=== PATIENT | female | born 1945 | race Caucasian/White ===

== ENCOUNTER 2022-02-10 16:44 | Inpatient (IN) | payer MEDICARE, OTHER ==
[~2022-02-10] VITALS: Ht 152.4 cm; Wt 48.1 kg
--- NOTE | 2022-02-10 16:50 | NUR ---
BIB RA78 C/O ALTERED MENTAL STATUS RESPONDING TO DEEP PAINFUL STIMULI BY RAISING LEFT ARM.
--- NOTE | 2022-02-10 16:51 | NUR ---
AT BED SIDE
--- NOTE | 2022-02-10 16:51 | NUR ---
IV ESTBLISHED L AC 18G
--- NOTE | 2022-02-10 16:52 | NUR ---
CODE STROKE WAS ACTIVATED
--- NOTE | 2022-02-10 17:00 | NUR ---
PATIENT WENT FOR CT HEAD VIA [facility]
--- NOTE | 2022-02-10 17:03 | NUR ---
PATIENT BACK FROM CT
[2022-02-10] MEDS ORDERED: ATOR10TA PO (17:08)
[2022-02-10] MEDS ORDERED: MELA3TAB41 PO (17:08)
[2022-02-10] MEDS ORDERED: NA P133E RC (17:08)
[2022-02-10] MEDS ORDERED: LISI10TA29 PO (17:08)
[2022-02-10] MEDS ORDERED: DIPH25CA51 PO (17:08)
[2022-02-10] MEDS ORDERED: MAGN400O6 PO (17:08)
[2022-02-10] MEDS ORDERED: HYDR25TA4 PO (17:08)
[2022-02-10] MEDS ORDERED: GLUC1KIT IM (17:08)
[2022-02-10] MEDS ORDERED: DOCU-141 PO (17:08)
[2022-02-10] MEDS ORDERED: ENOX40DI SQ (17:08)
[2022-02-10] MEDS ORDERED: HYDR-4076 PO (17:08)
[2022-02-10] MEDS ORDERED: MULT-24 PO (17:08)
[2022-02-10] MEDS ORDERED: BISA10SU11 RC (17:08)
[2022-02-10] MEDS ORDERED: INSU100I40 SQ (17:08)
[2022-02-10] MEDS ORDERED: ASPI-1169 PO (17:08)
[2022-02-10] MEDS ORDERED: HYDR-4209 PO (17:14)
[2022-02-10] MEDS ORDERED: MEMA5TAB42 PO (17:14)
[2022-02-10] MEDS ORDERED: SENN-261 PO (17:14)
[2022-02-10] MEDS ORDERED: ACET-868 PO (17:14)
[2022-02-10] MEDS ORDERED: ACET-2605 PO (17:14)
[2022-02-10] MEDS ORDERED: ASCO-352 PO (17:14)
[2022-02-10] MEDS ORDERED: HYDR-3972 PO (17:14)
[2022-02-10] MEDS ORDERED: NYST15PO4 TP (17:14)
[2022-02-10] MEDS ORDERED: ZINC50TA65 PO (17:14)
[2022-02-10 17:29] LABS: BASOPHILS % (AUTO) 0.2 % (0.0-2.0); HEMATOCRIT 41 % (33-45); LYMPHOCYTES # (AUTO) 1.9 K/uL (0.8-4.8); LYMPHOCYTES % (AUTO) 10.4 % (20.0-44.0); MEAN CORPUSCULAR HGB CONC 32 g/dl (31.0-36.0); MEAN CORPUSCULAR VOLUME 92 fL (82-100); MONOCYTES # (AUTO) 0.9 K/uL (0.1-1.30); NEUTROPHILS # (AUTO) 15.4 K/uL (1.8-8.9); NEUTROPHILS % (AUTO) 84.4 % (43.0-81.0); PLATELET COUNT (AUTO) 258 K/uL (150-450); RED BLOOD CELL COUNT(AUTO) 4.39 MIL/uL (4.0-5.2); WHITE BLOOD COUNT (AUTO) 18.2 K/uL (4.3-11.0)
--- NOTE | 2022-02-10 17:33 | NUR ---
FAMILY CALLED AT [phone], NO ANSWER
[2022-02-10 17:39] LABS: CALCIUM, SERUM 10.4 mg/dL (8.5-10.1); CARBON DIOXIDE 20 mmol/L (21-32); CHLORIDE 117 mmol/L (98-107); CREATININE 7.3 mg/dL (0.6-1.3); GLUCOSE 171 mg/dL (74-106)
--- NOTE | 2022-02-10 17:44 | NUR ---
ADDITION IVS ESTABLIHSED R AC 18G, R FA 20G.
--- NOTE | 2022-02-10 17:50 | NUR ---
TPA NOT RECOMMENDED BY NEUROLOGIST
[2022-02-10 17:57] LABS: POTASSIUM 4.4 mmol/L (3.5-5.1)
[2022-02-10 18:03] LABS: SODIUM SERUM 160 mmol/L (136-145); UREA NITROGEN, BLOOD 181 mg/dL (7-18)
--- NOTE | 2022-02-10 18:21 | NUR ---
SWAB FOR COVID19 SENT TO LAB
[2022-02-10] MEDS ORDERED: IV NS 0.9% 1,000 ML BAG IV ONE (18:30)
[2022-02-10] MEDS ORDERED: PIPERACILLIN /TAZOBACTAM 3.375 G in IV D5W 50 ML IV ONE (18:30)
[2022-02-10] MEDS ORDERED: MAG HYDROX/AL HYDROX/SIMETH 30 ML UDC PO PRN (19:00)
[2022-02-10] MEDS ORDERED: ACETAMINOPHEN 325 MG TABLET PO PRN (19:00)
[2022-02-10] MEDS ORDERED: Z GUARD REMEDY 4 OZ OINT TP PRN (19:00)
[2022-02-10] MEDS ORDERED: MAGNESIUM HYDROXIDE 30 ML UDC PO PRN (19:00)
[2022-02-10] MEDS ORDERED: ONDANSETRON HCL/PF 4 MG/2 ML VIAL IVP PRN (19:00)
[2022-02-10] MEDS ORDERED: ZOLPIDEM TARTRATE 5 MG TABLET PO PRN (19:00)
--- NOTE | 2022-02-10 19:23 | NUR ---
Lab called regarding covid specimen. notified. I did order a covid order
[2022-02-10] MEDS ORDERED: ASPIRIN 300 MG/SUPP.RECT RC ONE ×2 (19:30→20:24)
[2022-02-10] MEDS ORDERED: JEVITY 1.2 CAL 1,000 ML BOTTLE NG PRN (19:30)
[2022-02-10] MEDS ORDERED: BISACODYL SUPP (10 MG) 10 MG/SUPP.RECT SUPP.RECT RC PRN (20:00)
[2022-02-10] MEDS ORDERED: Medication Not On Formulary EA (Melatonin 3 MG) PO PRN (20:00)
[2022-02-10] MEDS ORDERED: ACETAMINOPHEN ES 500 MG TABLET PO PRN (20:00)
[2022-02-10] MEDS ORDERED: hydrALAZINE HCL 25 MG TABLET PO PRN (20:00)
[2022-02-10] MEDS ORDERED: NA PHOS,M-B/NA PHOS,DI-BA 1 EA ENEMA RC PRN (20:00)
[2022-02-10] MEDS ORDERED: PIPERACILLIN /TAZOBACTAM 3.375 G VIAL IV ONE (20:24)
--- NOTE | 2022-02-10 20:58 | NUR ---
[facility] ON THE PHONE WITH DR. BOLIVAR FOR PEER TO PEER
[2022-02-10] MEDS ORDERED: GLUCAGON,HUMAN RECOMBINANT 1 MG/VIAL VIAL IM PRN (21:00)
[2022-02-10 21:34] LABS: BILIRUBIN,DIRECT 0.1 mg/dL (0.0-0.2); BILIRUBIN,TOTAL 0.3 mg/dL (0.2-1.0)
--- NOTE | 2022-02-10 21:42 | NUR ---
LACTIC ACID 2.7
--- NOTE | 2022-02-10 21:46 | NUR ---
[facility] SWAB COLLECTED AND SENT TO LAB. PATIENT'S BELONGINGS LIST DONE.
[2022-02-10 21:47] LABS: ABG BASE EXCESS -9.2 mmol/L; ABG PCO2 29.5 mmHg (35.0-45.0); ABG PH 7.334 (7.350-7.450); ABG PO2 149.8 mmHg (75.0-100.0); COHb 0.3 % (0.5-1.5); MetHb 0.3 % (0.0-1.5); O2Hb 97.8 % (94.0-97.0); SITE, ABG Right Radial; VENT MODE, BG NASAL CANNULA
[2022-02-10] MEDS: SENNOSIDES 8.6 MG TABLET PO SCH (22:00)
[2022-02-10] MEDS: ATORVASTATIN 10 MG TABLET PO SCH (22:00)
--- NOTE | 2022-02-10 22:55 | NUR ---
Jackeline rascon in [facility] - 02/10/22 at 2319 by JUAN ALBERTO TRANSFERRED TO THIRD FLOOR UNDER ACLS
[2022-02-10 23:00] VITALS: BP 108/49
--- NOTE | 2022-02-10 23:00 | NUR ---
PATIENT ADMITTED TO [facility]
--- NOTE | 2022-02-10 23:00 | NUR ---
RN ADMITTING NOTE PATIENT RECEIVED FROM ER FOR AMS AND UTI. PATIENT IS CURRENTLY RESPONDING AND OPENING EYES TO TOUCH AND DEEP PAIN STIMULI. PATIENT RESPONDS SOMETIMES BUT UNABLE TO COMPREHEND WHAT PATIENT IS SAYING. PATIENT ON 4LPM, TOLERATING WELL. COUGH NOTED. PATIENT ON TELE MONITOR READING SR 100 BPM WITH PAC. PATIENT CAME WITH LAWSON CATHETER ON, DRAINING YELLOW MILDLY CLOUDY URINE. PATIENT CURRENTLY NPO AT THIS TIME, UNABLE TO FOLLOW COMMANDS. PENDING SWALLOW EVAL. PATIENT HAS SEVERAL IV ACCESS. REMOVED OTHERS. PATIENT NOW ONLY HAS RAC 18 G SALINE LOCKED AND LAC 18 G. BOTH PATENT AND INTACT. SAFETY MEASURES IN PLACE: BED LOCKED AND IN LOWEST POSITION, CALL LIGHT WITHIN REACH, SIDE RAILS UP. WILL MONITOR PATIENT CLOSELY.
--- NOTE | 2022-02-10 23:11 | NUR ---
REPORT GIVEN TO NILDA MCCARTY [phone] FOR JAZZMINE
--- NOTE | 2022-02-11 | NUR ---
CALLED [facility] TO GET IMMUNIZATION RECORDS. PER SILVINO MUNGUIA, THEY DON'T HAVE ANY RECORDS OF HER IMMUNIZATION. SON CALLED ALSO NO ANSWER.
[2022-02-11] MEDS: BLOOD SUGAR DIAGNOSTIC 1 EACH STRIP IN SCH ×5 (00:14→21:30)
[2022-02-11] MEDS: IV 1/2NS 1000 ML 1,000 ML IV PRN ×2 (00:15→11:39)
[2022-02-11] MEDS: PIPERACILLIN /TAZOBACTAM 2.25 G in IV D5W 50 ML IV SCH ×3 (05:12→21:29)
[2022-02-11 06:31] LABS: HEMATOCRIT 39 % (33-45); HEMOGLOBIN 12.3 g/dL (11.5-14.8); LYMPHOCYTES # (AUTO) 0.6 K/uL (0.8-4.8); LYMPHOCYTES % (AUTO) 2.2 % (20.0-44.0); MEAN CORPUSCULAR HGB CONC 32 g/dl (31.0-36.0); MEAN CORPUSCULAR VOLUME 94 fL (82-100); MONOCYTES # (AUTO) 0.2 K/uL (0.1-1.30); MONOCYTES % (AUTO) 0.8 % (2.0-12.0); NEUTROPHILS # (AUTO) 27.2 K/uL (1.8-8.9); PLATELET COUNT (AUTO) 153 K/uL (150-450); RED BLOOD CELL COUNT(AUTO) 4.11 MIL/uL (4.0-5.2); WHITE BLOOD COUNT (AUTO) 28.1 K/uL (4.3-11.0)
[2022-02-11 06:43] LABS: CALCIUM, SERUM 9.3 mg/dL (8.5-10.1); CARBON DIOXIDE 17 mmol/L (21-32); CHLORIDE 118 mmol/L (98-107); CREATININE 7.1 mg/dL (0.6-1.3); GLUCOSE 324 mg/dL (74-106); MAGNESIUM 3.3 mg/dL (1.8-2.4); POTASSIUM 5.1 mmol/L (3.5-5.1)
--- NOTE | 2022-02-11 07:03 | NUR ---
RN CLOSING NOTE PATIENT IN BED, EYES CLOSED. PATIENT DID NOT HAVE ANY SIGNIFICANT CHANGES IN MENTAL STATUS. PATIENT STILL ON 4LPM, TOLERATING WELL AT 98% 02 SAT. PATIENT SR 87 WITH PAC AT THIS TIME. PATIENT UNABLE TO MAKE NEEDS KNOWN. LAWSON CATHETER DRAINING YELLOW CLOUDY URINE. PATIENT HAS ONGOING 1/2 NS AT 100 ML/HR. BS 241, NO SLIDING SCALE AND PATIENT NPO. SAFETY MEASURES IN PLACE: BED LOCKED AND IN LOWEST POSITION, CALL LIGHT WITHIN REACH, SIDE RAILS UP. ALL NEEDS MET AND ATTENDED. ALL ORDERS CARRIED OUT. WILL ENDORSE TO DAY SHIFT NURSE FOR JAZZMINE.
[2022-02-11 07:26] LABS: SODIUM SERUM 156 mmol/L (136-145)
[2022-02-11 07:27] LABS: UREA NITROGEN, BLOOD 175 mg/dL (7-18)
[2022-02-11] MEDS: PANTOPRAZOLE 40 MG TABLET.DR PO SCH (07:30)
[2022-02-11 08:18] VITALS: BP 107/48
[2022-02-11] MEDS: ASPIRIN 81 MG TAB.CHEW PO SCH (09:00)
[2022-02-11] MEDS: DOCUSATE SODIUM 100 MG CAPSULE PO SCH (09:00)
[2022-02-11] MEDS: MULTIVITAMINS,THERAGRAN 1 UDTAB TABLET PO SCH (09:00)
[2022-02-11] MEDS: MEMANTINE HCL 5 MG TABLET PO SCH ×2 (09:00→17:00)
[2022-02-11] MEDS: ZINC SULFATE 220 MG CAPSULE PO SCH ×2 (09:00→17:00)
[2022-02-11] MEDS: ASCORBIC ACID 500 MG TABLET PO SCH ×2 (09:00→17:00)
--- NOTE | 2022-02-11 09:33 | NUR ---
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 DR ALICEA NOTIFIED OF SURGICAL CONSULT REQUEST. RECOMMENDATIONS MADE FOR SKIN PROTECTION. DISCUSSED WITH NURSING STAFF. IN AGREEMENT WITH PLAN OF CARE. PT IS ON [facility] BED. Addendum: 02/11/22 at 0935 by IRINA GARCIA WNDNU Amended: Links added.
[2022-02-11] MEDS: NYSTATIN TOP POWDER 15 GM BOTTLE TP SCH (10:10)
--- NOTE | 2022-02-11 10:30 | NUR ---
swallow eval not done.pt. too groggy.
[2022-02-11 11:37] LABS: COLOR,URINE YELLOW (YELLOW)
[2022-02-11 11:38] LABS: BILIRUBIN,URINE NEGATIVE (NEGATIVE); LEUKOCYTE ESTERASE ,URINE LARGE (NEGATIVE); NITRITE, URINE NEGATIVE (NEGATIVE); PROTEIN,URINE 3+ mg/dl (NEGATIVE); UGLUCOSE NEGATIVE (NEGATIVE); UROBILINOGEN,URINE M EU/dL (0.2)
[2022-02-11 11:50] LABS: BACTERIA,URINE Many /HPF (None Seen); SQUAMOUS EPITHELIAL CELL,UR Moderate /HPF (None Seen); WBC,URINE 81-100 /HPF (0-3)
[2022-02-11 12:00] VITALS: BP 120/49
[2022-02-11] MEDS: INSULIN REGULAR, HUMAN 100 UNIT/ML 3 ML VIAL SQ PRN ×3 (12:31→21:31)
[2022-02-11 15:45] VITALS: BP 118/59
--- NOTE | 2022-02-11 17:00 | NUR ---
sánchez made aware of low urine output.
[2022-02-11] MEDS: DAKINS QUARTER STRENGTH (0.125%) 480 ML BOTTLE TOP SCH (17:30)
--- NOTE | 2022-02-11 18:40 | NUR ---
family member at bedside all day.several attempts to insert ng after sánchez whiting ordered,without success.will endorse to next shift.etta in and debridement of sacrum done as well as culture sent of site.urine sent for ua and culture.
[2022-02-11 20:00] VITALS: BP_SYST 109; BP_SYST 140; BP_DIAS 47; BP_DIAS 50
[2022-02-11] MEDS: ATORVASTATIN 10 MG TABLET PO SCH (22:00)
[2022-02-11] MEDS: SENNOSIDES 8.6 MG TABLET PO SCH (22:00)
[2022-02-12] VITALS: BP 140/47
[2022-02-12] MEDS: IV 1/2NS 1000 ML 1,000 ML IV PRN ×2 (00:30→13:39)
[2022-02-12] MEDS: BLOOD SUGAR DIAGNOSTIC 1 EACH STRIP IN SCH ×6 (02:13→21:39)
--- NOTE | 2022-02-12 02:18 | NUR ---
TALENT ADVISOR NOTE NG TUBE PLACED IN LEFT NARE @ 55 CM. POSITIVE PLACEMENT CONFIRMED VIA CHEST X-RAY. JEVITY 1.2 STARTED PER MD ORDERS @ 20 ML/HR. WILL CHECK RESIDUAL AND INCREASE DOSE IN 2 HOURS. GOAL IS 60 ML/HR.
[2022-02-12 04:00] VITALS: BP 130/58
--- NOTE | 2022-02-12 04:30 | NUR ---
BOAT CAPTAIN NOTE PATIENT TOLERATING NG TUBE FEEDING JEVITY 1.2 @ 20 ML/HR, NO RESIDUAL NOTED, INCREASED TO 40 ML/HR. WILL CONTINUE TO MONITOR
[2022-02-12] MEDS: PIPERACILLIN /TAZOBACTAM 2.25 G in IV D5W 50 ML IV SCH ×3 (05:25→21:00)
[2022-02-12] MEDS: INSULIN REGULAR, HUMAN 100 UNIT/ML 3 ML VIAL SQ PRN ×5 (05:41→22:19)
[2022-02-12 06:24] LABS: BASOPHILS % (AUTO) 0.1 % (0.0-2.0); HEMATOCRIT 38 % (33-45); LYMPHOCYTES # (AUTO) 0.5 K/uL (0.8-4.8); LYMPHOCYTES % (AUTO) 2.8 % (20.0-44.0); MEAN CORPUSCULAR HGB CONC 31 g/dl (31.0-36.0); MEAN CORPUSCULAR VOLUME 94 fL (82-100); MONOCYTES # (AUTO) 0.3 K/uL (0.1-1.30); MONOCYTES % (AUTO) 1.8 % (2.0-12.0); NEUTROPHILS # (AUTO) 15.3 K/uL (1.8-8.9); NEUTROPHILS % (AUTO) 95.3 % (43.0-81.0); PLATELET COUNT (AUTO) 121 K/uL (150-450); RED BLOOD CELL COUNT(AUTO) 4.04 MIL/uL (4.0-5.2); WHITE BLOOD COUNT (AUTO) 16.1 K/uL (4.3-11.0)
[2022-02-12 07:19] LABS: CALCIUM, SERUM 8.6 mg/dL (8.5-10.1); CARBON DIOXIDE 12 mmol/L (21-32); CHLORIDE 115 mmol/L (98-107); GLUCOSE 255 mg/dL (74-106); MAGNESIUM 2.9 mg/dL (1.8-2.4); POTASSIUM 3.9 mmol/L (3.5-5.1); SODIUM SERUM 152 mmol/L (136-145)
--- NOTE | 2022-02-12 07:32 | NUR ---
STRUCTURAL IRON ERECTOR NOTE PATIENT A/O X 0, ONLY MUMBLES, OPENS EYES. PATIENT STABLE ON 5 LPM OF OXYGEN VIA NASAL CANNULA, NO S/S OF DISTRESS OR SOB NOTED, BREATHING EVEN AND UNLABORED. PATIENT ON TELE MONITORING READING SINUS RHYTHM. RIGHT AC #28G IV ACCESS INTACT AND INFUSING 1/2 NS @ 85 ML/HR. NG TUBE IN LEFT NARE @ 55 CM, INFUSING JEVITY 1.2 @ 40 ML/HR, NO RESIDUAL NOTED, TOLERATING WELL. MEDICATIONS GIVEN ORDERED, PT NEEDS MET THROUGHOUT SHIFT. PATIENT TURNED AND REPOSITIONED Q2H. LAWSON CATH IN PLACE AND DRAINING CLOUDY YELLOW URINE. SAFETY MEASURES IN PLACE: CALL LIGHT WITHIN REACH, SIDE RAILS UP X 3, BED LOCKED IN LOWEST POSITION, HOB ELEVATED, BED ALARM ON. ENDORSED TO DAY SHIFT NURSE FOR CONTINUITY OF CARE
[2022-02-12 08:00] VITALS: BP 110/59
[2022-02-12 08:19] LABS: PHOSPHORUS 8.2 mg/dL (2.5-4.9); UREA NITROGEN, BLOOD 184 mg/dL (7-18)
[2022-02-12] MEDS: DOCUSATE SODIUM 100 MG CAPSULE PO SCH (08:38)
[2022-02-12] MEDS: ASCORBIC ACID 500 MG TABLET PO SCH ×2 (08:38→16:51)
[2022-02-12] MEDS: ASPIRIN 81 MG TAB.CHEW PO SCH (08:38)
[2022-02-12] MEDS: ZINC SULFATE 220 MG CAPSULE PO SCH ×2 (08:38→16:51)
[2022-02-12] MEDS: MEMANTINE HCL 5 MG TABLET PO SCH ×2 (08:38→16:51)
[2022-02-12] MEDS: MULTIVITAMINS,THERAGRAN 1 UDTAB TABLET PO SCH (08:38)
[2022-02-12] MEDS: DAKINS QUARTER STRENGTH (0.125%) 480 ML BOTTLE TOP SCH (08:40)
[2022-02-12] MEDS: NYSTATIN TOP POWDER 15 GM BOTTLE TP SCH (08:40)
[2022-02-12] MEDS: PANTOPRAZOLE 40 MG TABLET.DR PO SCH (08:43)
[2022-02-12 12:00] VITALS: BP 129/53
--- NOTE | 2022-02-12 14:30 | NUR ---
bgl check and 420,stat lab glucose ordered.call out to katya whiting and received order for 20 units reg. insulin.
[2022-02-12] MEDS ORDERED: INSULIN REGULAR, HUMAN 100 UNIT/ML 10 ML VIAL SQ ONE (15:00)
--- NOTE | 2022-02-12 15:40 | NUR ---
received call from lab,serum glucose 572.
--- NOTE | 2022-02-12 15:45 | NUR ---
recheck of glucose at this time and now 455,call out to katya whiting np,states he will input orders.aware tube feeding rate 60/hr.
[2022-02-12 16:00] VITALS: BP 119/55
[2022-02-12] MEDS ORDERED: INSULIN ASPART/LISPRO 100 UNIT/ML CARTRIDGE SQ ONE (16:30)
--- NOTE | 2022-02-12 17:39 | NUR ---
COMPANY TRUCK DRIVER LIGHT KAYLEEN. Addendum: 02/12/22 at 1740 by ERIN LANDEROS RN ABOVE CHARTING ON WRONG CHART.
--- NOTE | 2022-02-12 17:40 | NUR ---
RESP. TX HERE NOW DOING ABG,STATES HE WILL SEND TO KATHY.
[2022-02-12 17:46] LABS: ABG PH 7.348 (7.350-7.450); ABG PO2 58.3 mmHg (75.0-100.0); COHb 0.2 % (0.5-1.5); MetHb 0.2 % (0.0-1.5); O2Hb 88.6 % (94.0-97.0); SITE, ABG Right Radial; VENT MODE, BG NASAL CANNULA
--- NOTE | 2022-02-12 19:35 | NUR ---
RN NOTES RECEIVED PATIENT SLEEPING BUT AROUSABLE TO PAINFUL STIMULI, NON-VERBAL. ST ON TELE MONITOR HR-103, F/ C DRAINING CLOUDY URINE, ON NG-TUBE IN PLACE.. JEVITY 1.2RUNNING @ 60ML/HR, NOT IN DISTRESS, NO PAIN NOTED, SIDERAILSUPX2. WILL CONTINUE TO MONITOR
[2022-02-12 20:00] VITALS: BP 138/59
[2022-02-12] MEDS: SENNOSIDES 8.6 MG TABLET PO SCH (22:13)
[2022-02-12] MEDS: ATORVASTATIN 10 MG TABLET PO SCH (22:13)
[2022-02-12] MEDS: INSULIN GLARGINE, 100 UNIT/ML CARTRIDGE SQ SCH (22:16)
[2022-02-13] VITALS (47 sets, daily range): BP systolic 63–141; BP diastolic 34–61
[2022-02-13] MEDS: BLOOD SUGAR DIAGNOSTIC 1 EACH STRIP IN SCH ×6 (01:00→21:39)
[2022-02-13] MEDS: IV 1/2NS 1000 ML 1,000 ML IV PRN ×2 (01:00→15:19)
[2022-02-13] MEDS: INSULIN REGULAR, HUMAN 100 UNIT/ML 3 ML VIAL SQ PRN ×4 (01:09→21:40)
--- NOTE | 2022-02-13 04:17 | NUR ---
RN NOTES INFORMED JASPER LAU-JAYESH REGARDING PT'S BLOOD SUGAR AND PT'S IS GETTING JEVITY1.2, GOT AN ORDER TO CHANGE IT TO GLUCERNA 1.2, ORDER NOTED AND CARRIED OUT
[2022-02-13] MEDS: PIPERACILLIN /TAZOBACTAM 2.25 G in IV D5W 50 ML IV SCH (05:19)
[2022-02-13] MEDS: GLUCERNA 1.2 1,000 ML BOTTLE NG PRN (05:41)
[2022-02-13] MEDS ORDERED: DILTIAZEM HCL 50 MG IV IV ONE (06:45)
--- NOTE | 2022-02-13 06:45 | NUR ---
RN NOTES NEW IV LINE INSERTED BY THE LABOR RELATIONS WORKER MARITO, GAUGE 22 ON THE RIGHT WRIST
--- NOTE | 2022-02-13 06:50 | NUR ---
RN NOTES SPOKE TO JASPER MIMS AND INFORMED HER THAT PATIENT FROM SR WENT TO AFIB WITH RVR HR-155, CARDIZEM 10MG IV X1 ORDERED, ORDER NOTED AND CARRIED OUT
--- NOTE | 2022-02-13 06:50 | NUR ---
RN NOTES PATIENT IS TRYING PULL OUT HER IV - BILATERAL SOFT WRIST RESTRAINTS WAS ORDERED, AND MIDLINE INSERTION WELL
[2022-02-13] MEDS ORDERED: DILTIAZEM HCL 25 MG IV ONE (06:51)
--- NOTE | 2022-02-13 07:09 | NUR ---
RN NOTES PT. HERAT RATE CONVERTED TO ST -115AFTER GIVING CARDIZEM 10MG IV, MORNING CARE RENDERED, SIDERAILSUPX2, NOT IN DISTRESS, PT. NEEDS ATTENDED Addendum: 02/13/22 at 0720 by TAYLA CEE RN HEART RATE
[2022-02-13] MEDS: PANTOPRAZOLE 40 MG TABLET.DR PO SCH (07:30)
--- NOTE | 2022-02-13 07:35 | NUR ---
ms rn received patient on bed,non verbal,on o2 5 liters saturating 97%,w/ ng tube held at this time by material handler 1st shift rn,kulkarni to gravity w/ yellowish urine output,per material handler 1st shift, patient converted to afib this analyzer sales, cardizem iv 10mg given, patient converted to sinus tach, now again afib at 130's, dr. prado notified, wants to transfer pt to icu.
--- NOTE | 2022-02-13 08:20 | NUR ---
ms ishmael stat abg ordered and carried out,we got icu bed,to transfer patient soon.
[2022-02-13] MEDS ORDERED: AMIODARONE 450 MG in IV D5W 250 ML IV PRN (08:30)
[2022-02-13] MEDS ORDERED: AMIODARONE 150 MG in IV D5W 100 ML IV ONE (08:30)
--- NOTE | 2022-02-13 08:50 | NUR ---
rn patient to icu, report given to Micha quiñones.
[2022-02-13 08:57] LABS: ABG BASE EXCESS -10.7 mmol/L; ABG OXYGEN SATURATION 79.6 % (92.0-98.5); ABG PCO2 20.3 mmHg (35.0-45.0); ABG PH 7.398 (7.350-7.450); ABG PO2 46.7 mmHg (75.0-100.0); AaDO2 215.2 mmHg; COHb 0.3 % (0.5-1.5); MetHb 0.3 % (0.0-1.5); O2Hb 79.1 % (94.0-97.0); SITE, ABG Right Radial; VENT MODE, BG 6L NC
[2022-02-13] MEDS: DAKINS QUARTER STRENGTH (0.125%) 480 ML BOTTLE TOP SCH (09:00)
[2022-02-13] MEDS: ZINC SULFATE 220 MG CAPSULE PO SCH ×2 (09:00→17:51)
[2022-02-13] MEDS: ASCORBIC ACID 500 MG TABLET PO SCH ×2 (09:00→17:51)
[2022-02-13] MEDS: DOCUSATE SODIUM 100 MG CAPSULE PO SCH (09:00)
[2022-02-13] MEDS: MULTIVITAMINS,THERAGRAN 1 UDTAB TABLET PO SCH (09:00)
[2022-02-13] MEDS: NYSTATIN TOP POWDER 15 GM BOTTLE TP SCH (09:00)
[2022-02-13] MEDS: ASPIRIN 81 MG TAB.CHEW PO SCH (09:00)
[2022-02-13] MEDS: MEMANTINE HCL 5 MG TABLET PO SCH ×2 (09:00→17:50)
--- NOTE | 2022-02-13 09:00 | NUR ---
ICU/RN: INITIAL NOTES RECEIVED PT FROM KATERIN RN. PT TRANSFERRED TO ICU VIA BED. PLACED ON MONITOR, UNCONTROLLED A.FIB. SHORTNESS OF BREATH AND DIFFICULTY BREATHING NOTED. PT PLACED ON HI-FLOW 40 L, 100% FI02. RIGHT WRIST PIV NOTED, PATENT, MIDLINE INSERTION PENDING. REPEAT ABG ORDERED. ALL NEEDS WILL BE ATTENDED TO, SAFETY MEASURES TAKEN, BED IN LOW POSITION, SIDE RAILS UP, CALL LIGHT WITHIN REACH. IV HYDRATION INFUSING ORDERED.
--- NOTE | 2022-02-13 09:21 | NUR ---
RT NOTE POST ABG RESULTS PT PLACED ON HFNC 40L/100% PER MD PELEG
[2022-02-13] MEDS: AMIODARONE 450 MG in IV D5W 241 ML IV PRN ×2 (09:39→17:39)
[2022-02-13 09:53] LABS: ABG BASE EXCESS -11.4 mmol/L; ABG OXYGEN SATURATION 90.3 % (92.0-98.5); ABG PCO2 18.6 mmHg (35.0-45.0); ABG PH 7.405 (7.350-7.450); ABG PO2 64.1 mmHg (75.0-100.0); AaDO2 630.3 mmHg; COHb 0.3 % (0.5-1.5); MetHb 0.3 % (0.0-1.5); O2Hb 89.8 % (94.0-97.0); SITE, ABG Right Radial; VENT MODE, BG HFNC 40L 100%
--- NOTE | 2022-02-13 10:25 | NUR ---
ICU/RN: PT INTUBATED ETT 7.5, 23CM AT THE LIP, CHEST XRAY ORDERED, NO ACUTE DISTRESS NOTED.GOOD COLOR CHANGE. WILL CONTINUE TO MONITOR
[2022-02-13] MEDS ORDERED: PHENYLEPHRINE 100 MG in IV NS 0.9% 240 ML IV PRN ×2 (10:30→11:00)
[2022-02-13] MEDS ORDERED: PROPOFOL 100 ML IV PRN (10:30)
--- NOTE | 2022-02-13 11:10 | NUR ---
RT NOTE PATIENT INTUBATED 7.5 ETT, 23 CM AT THE LIP BY JAYESH DOAN. COLOR CHANGE ON CO2 CAPNOMETER. EQUAL BILATERAL CHEST RISE AND BREATH SOUNDS NOTED. VENT SETTINGS CHARTED. VENT PLUGGED IN RED OUTLET. ALARMS ON AND AUDIBLE. BVM BEDSIDE. WILL CONTINUE TO MONITOR. Addendum: 02/13/22 at 1123 by MARTÍNEZ RAMIREZ RT Amended: Links added.
--- NOTE | 2022-02-13 11:15 | NUR ---
ICU/RN: AT BEDSIDE, CENTRAL LINE PLACED, CHEST XRAY ORDERED.
[2022-02-13] MEDS: PROPOFOL 10MG/ML 50ML 50 ML IV PRN ×2 (11:28→22:27)
[2022-02-13 11:36] LABS: ABG BASE EXCESS -13.6 mmol/L; ABG OXYGEN SATURATION 96.6 % (92.0-98.5); ABG PCO2 29.9 mmHg (35.0-45.0); ABG PH 7.238 (7.350-7.450); ABG PO2 113.5 mmHg (75.0-100.0); AaDO2 569.6 mmHg; COHb 0.2 % (0.5-1.5); MetHb 0.4 % (0.0-1.5); SITE, ABG Right Radial
[2022-02-13] MEDS ORDERED: ETOMIDATE 2 MG/ML VIAL IV ONE (11:54)
[2022-02-13] MEDS: MEROPENEM 500 MG in IV NS 0.9% 50 ML IV SCH ×2 (12:16→23:48)
--- NOTE | 2022-02-13 12:16 | NUR ---
ICU/RN: IAN OFF BP STABLE. WILL CONTINUE TO MONITOR BP 136/57, HR 94,RR29, 100 O2
--- NOTE | 2022-02-13 12:30 | NUR ---
ICU/RN: ECHO DONE, EF 65-70%
[2022-02-13 13:20] LABS: HEMATOCRIT 30 % (33-45); HEMOGLOBIN 9.8 g/dL (11.5-14.8); LYMPHOCYTES # (AUTO) 0.5 K/uL (0.8-4.8); LYMPHOCYTES % (AUTO) 2.1 % (20.0-44.0); MEAN CORPUSCULAR HGB CONC 32 g/dl (31.0-36.0); MEAN CORPUSCULAR VOLUME 91 fL (82-100); MONOCYTES # (AUTO) 0.4 K/uL (0.1-1.30); MONOCYTES % (AUTO) 1.7 % (2.0-12.0); NEUTROPHILS # (AUTO) 21.4 K/uL (1.8-8.9); NEUTROPHILS % (AUTO) 96.2 % (43.0-81.0); PLATELET COUNT (AUTO) 97 K/uL (150-450); RED BLOOD CELL COUNT(AUTO) 3.32 MIL/uL (4.0-5.2); WHITE BLOOD COUNT (AUTO) 22.3 K/uL (4.3-11.0)
[2022-02-13 14:16] LABS: ALANINE AMINOTRANSFERASE 29 U/L (12-78); ALBUMIN 1.6 g/dL (3.4-5.0); ALKALINE PHOSPHATASE 84 U/L (46-116); ASPARTATE AMINOTRANSFERASE 30 U/L (15-37); BILIRUBIN,TOTAL 0.3 mg/dL (0.2-1.0); CARBON DIOXIDE 18 mmol/L (21-32); CHLORIDE 115 mmol/L (98-107); CREATININE 4.3 mg/dL (0.6-1.3); GLUCOSE 195 mg/dL (74-106); MAGNESIUM 2.5 mg/dL (1.8-2.4); PHOSPHORUS 5.1 mg/dL (2.5-4.9); SODIUM SERUM 148 mmol/L (136-145); TOTAL PROTEIN, SERUM 5.7 g/dL (6.4-8.2)
[2022-02-13] MEDS ORDERED: POTASSIUM CHLORIDE 20 MEQ POWDER PACKET GT ONE (15:30)
--- NOTE | 2022-02-13 15:30 | NUR ---
REPORT GIVEN BY ALBERT-RN; PT. NO APPARENT DISTRESS NOTED AT THIS TIME.WILL CONTINUE TO MONITOR.
--- NOTE | 2022-02-13 19:05 | NUR ---
RN OPENING NOTES RECEIVED PATIENT ON BED, SEDATED, NO AGITATION NOTED. ON MECHANICAL VENTILATOR, SETTINGS TOLERATED WELL, RESPIRATORY EVEN AND UNLABORED, NO SOB NOTED, NOT IN ACUTE DISTRESS. REMAIN AFEBRILE. NOTED WITH RIJ IV LINE, PATENT, INTACT. FLUSHED WITH NS, NO S/S OF INFILTRATION NOTED AT SITE. RUNNING WITH 0.45 NS @ 85 ML/HR, AMIO DRIP @ 16.67 ML/HR AND PROPOFOL @ 5 MCG/KG/MIN. WITH NG TUBE INSERTED AT LEFT NARES, PATENT INTACT, VERIFIED PLACEMENT BY AUSCULTATION, WITH 5 ML RESIDUAL NOTED UPON ASPIRATION, NPO EXCEPT MEDS. ON LAWSON CATHETER PATENT, INTACT DRAINING WITH CLEAR YELLOW URINE VIA GRAVITY. ALL SAFETY MEASURE PROVIDED. BED IN LOWEST POSITION, LOCKED. BED ALARM ARMED. CALL LIGHT WITH IN REACH. CONTINUE TO MONITOR.
[2022-02-13] MEDS: ATORVASTATIN 10 MG TABLET PO SCH (21:41)
[2022-02-13] MEDS: SENNOSIDES 8.6 MG TABLET PO SCH (21:41)
--- NOTE | 2022-02-13 21:42 | NUR ---
RN NOTES BLOOD SUGAR 109 mg/dL, NO INSULIN COVERAGE PER SLIDING SCALE.
[2022-02-13] MEDS: INSULIN GLARGINE, 100 UNIT/ML CARTRIDGE SQ SCH (22:00)
[2022-02-13 22:06] LABS: BAND % (MANUAL) 15 % (0.0-5.0); EOSINOPHILS % (MANUAL) 1 % (0-4); LYMPHOCYTES % (MANUAL) 4 % (16-48); MONOCYTES % (MANUAL) 1 % (0-11.0); NEUTROPHILS % (MANUAL) 79 (42-76)
--- NOTE | 2022-02-13 22:06 | NUR ---
RN NOTES LANTUS INSULIN NOT GIVEN, BLOOD SUGAR 109 mg/dL AND PATIENT IS ON NPO.
[2022-02-14] VITALS (76 sets, daily range): BP systolic 79–149; BP diastolic 30–76
[2022-02-14] MEDS: BLOOD SUGAR DIAGNOSTIC 1 EACH STRIP IN SCH ×6 (01:36→21:27)
[2022-02-14] MEDS: INSULIN REGULAR, HUMAN 100 UNIT/ML 3 ML VIAL SQ PRN ×3 (01:38→21:31)
[2022-02-14] MEDS: IV 1/2NS 1000 ML 1,000 ML IV PRN ×2 (02:36→14:20)
[2022-02-14 04:10] LABS: BASOPHILS % (AUTO) 0.1 % (0.0-2.0); EOSINOPHILS % (AUTO) 0.1 % (0.0-6.0); HEMATOCRIT 23 % (33-45); HEMOGLOBIN 7.7 g/dL (11.5-14.8); LYMPHOCYTES % (AUTO) 6.3 % (20.0-44.0); MEAN CORPUSCULAR HGB CONC 34 g/dl (31.0-36.0); MEAN CORPUSCULAR VOLUME 90 fL (82-100); MONOCYTES # (AUTO) 0.2 K/uL (0.1-1.30); MONOCYTES % (AUTO) 1.3 % (2.0-12.0); NEUTROPHILS # (AUTO) 14.8 K/uL (1.8-8.9); NEUTROPHILS % (AUTO) 92.2 % (43.0-81.0); PLATELET COUNT (AUTO) 70 K/uL (150-450); RED BLOOD CELL COUNT(AUTO) 2.56 MIL/uL (4.0-5.2)
[2022-02-14 04:28] LABS: ALANINE AMINOTRANSFERASE 22 U/L (12-78); ALKALINE PHOSPHATASE 77 U/L (46-116); ASPARTATE AMINOTRANSFERASE 24 U/L (15-37); BILIRUBIN,TOTAL 0.4 mg/dL (0.2-1.0); CALCIUM, SERUM 7.3 mg/dL (8.5-10.1); CARBON DIOXIDE 21 mmol/L (21-32); CHLORIDE 105 mmol/L (98-107); CREATININE 2.8 mg/dL (0.6-1.3); GLUCOSE 82 mg/dL (74-106); MAGNESIUM 1.9 mg/dL (1.8-2.4); PHOSPHORUS 3.2 mg/dL (2.5-4.9); SODIUM SERUM 137 mmol/L (136-145); TOTAL PROTEIN, SERUM 4.8 g/dL (6.4-8.2)
[2022-02-14 04:52] LABS: UREA NITROGEN, BLOOD 93 mg/dL (7-18)
[2022-02-14 04:53] LABS: ALBUMIN 1.4 g/dL (3.4-5.0)
--- NOTE | 2022-02-14 06:00 | NUR ---
RN NOTES NOTIFIED MORNING NEWS PRODUCER JASPER LAU REGARDING PATIENT POTASSIUM- 3.0, ALBUMIN- 1.4, BUN- 93, NO NEW ORDER.
[2022-02-14] MEDS ORDERED: POTASSIUM CHLORIDE 20 MEQ POWDER PACKET GT ONE (06:30)
--- NOTE | 2022-02-14 07:00 | NUR ---
RN NOTES RECEIVED PATIENT ON BED, SEDATED, RECEIVING HD, NO AGITATION NOTED. ON MECHANICAL VENTILATOR, SETTINGS TOLERATED WELL, RESPIRATORY EVEN AND UNLABORED, NO SOB NOTED, NOT IN ACUTE DISTRESS. REMAIN AFEBRILE. NOTED WITH RIJ IV LINE, PATENT, INTACT. FLUSHED WITH NS, NO S/S OF INFILTRATION NOTED AT SITE. IVF AT 85CC/HR , AMIO DRIP @ 16.67 ML/HR AND PROPOFOL @ 5 MCG/KG/MIN. IAN AT .78MCG/KG/MIN RUNNING FOR BP SUPPORT , NG TUBE INTACT VERIFIED PLACEMENT BY AUSCULTATION, NPO EXCEPT MEDS. ON LAWSON CATHETER PATENT, INTACT DRAINING WITH CLEAR YELLOW URINE VIA GRAVITY. ALL SAFETY MEASURE PROVIDED. BED IN LOWEST POSITION, LOCKED. BED ALARM ARMED. CALL LIGHT WITH IN REACH. CONTINUE TO MONITOR.
--- NOTE | 2022-02-14 07:19 | NUR ---
RN NOTES PATIENT REMAIN STABLE THROUGH OUT THE SHIFT. RESPIRATORY EVEN AND UNLABORED, NO SOB NOTED, NOT IN ACUTE DISTRESS. REMAIN AFEBRILE. RUNNING WITH 0.45 NS @ 85 ML/HR, AMIO DRIP @ 16.67 ML/HR AND PROPOFOL @ 5 MCG/KG/MIN, NORSYNEPHRINE @ 0.8MCG/KG/MIN. WITH NG TUBE INSERTED AT LEFT NARES, PATENT INTACT, NPO EXCEPT MEDS. ON LAWSON CATHETER PATENT, INTACT DRAINING WITH CLEAR YELLOW URINE VIA GRAVITY. ALL DUE MEDS GIVEN ORDERED. ALL SAFETY MEASURE PROVIDED. BED IN LOWEST POSITION, LOCKED. BED ALARM ARMED. CALL LIGHT WITH IN REACH.
[2022-02-14] MEDS: PANTOPRAZOLE 40 MG TABLET.DR PO SCH (08:23)
[2022-02-14] MEDS: DOCUSATE SODIUM 100 MG CAPSULE PO SCH (08:23)
[2022-02-14] MEDS: ASCORBIC ACID 500 MG TABLET PO SCH ×2 (08:23→17:08)
[2022-02-14] MEDS: ZINC SULFATE 220 MG CAPSULE PO SCH ×2 (08:23→17:08)
[2022-02-14] MEDS: ASPIRIN 81 MG TAB.CHEW PO SCH (08:23)
[2022-02-14] MEDS: MULTIVITAMINS,THERAGRAN 1 UDTAB TABLET PO SCH (08:24)
[2022-02-14] MEDS: MEMANTINE HCL 5 MG TABLET PO SCH ×2 (08:24→17:08)
[2022-02-14] MEDS: DAKINS QUARTER STRENGTH (0.125%) 480 ML BOTTLE TOP SCH (08:25)
--- NOTE | 2022-02-14 09:00 | NUR ---
RN NOTES no sedation vacation per dr hilda wilson
[2022-02-14] MEDS: DEXTROSE 50%-WATER 50 ML DISP.SYRIN IV PRN (09:08)
[2022-02-14] MEDS: HYDROCORTISONE SOD SUCCINATE 100 MG/2 ML VIAL IV SCH ×3 (09:19→21:27)
[2022-02-14] MEDS: NYSTATIN TOP POWDER 15 GM BOTTLE TP SCH (09:19)
--- NOTE | 2022-02-14 09:31 | NUR ---
RN NOTE PATIENT OBTAINED BS 42, REPEAT 62. 1/2 AMP D50 GIVEN VIA IV PER PROTOCOL AND MD ORDER NO S/S OF HYPOGLYCEMIA NOTED. PATIENT CURRENTLY SEDATED. DR. DOAN NOTIFIED, REPEAT BS AFTER 30 MINS BS 110. CONTINUE TO MONITOR.
[2022-02-14 09:56] LABS: ABG BASE EXCESS -1.5 mmol/L; ABG PCO2 21.7 mmHg (35.0-45.0); ABG PH 7.571 (7.350-7.450); ABG PO2 69.9 mmHg (75.0-100.0); AaDO2 190.3 mmHg; COHb 0.2 % (0.5-1.5); MetHb 0.3 % (0.0-1.5); O2Hb 93.5 % (94.0-97.0); SITE, ABG Right Radial; VENT MODE, BG AC 28 475 40% +5
[2022-02-14] MEDS: PROPOFOL 10MG/ML 50ML 50 ML IV PRN (10:45)
[2022-02-14] MEDS: MEROPENEM 500 MG in IV NS 0.9% 50 ML IV SCH ×2 (11:05→23:10)
[2022-02-14] MEDS ORDERED: PHENYLEPHRINE 100 MG in IV NS 0.9% 240 ML IV PRN ×2 (12:00→14:00)
[2022-02-14] MEDS: GLUCERNA 1.2 1,000 ML BOTTLE NG PRN (14:47)
--- NOTE | 2022-02-14 16:00 | NUR ---
RN note Patient started on Tube feeding Glucerna 1.2 @ 20cc/hr. PM care provided, patient had large soft bowel movement. Oral care done. endotracheal suctioning performed as needed. Tolerating current vent settings. Side rails up x3, HOB elevated above 45 degree, call light with in reach.
--- NOTE | 2022-02-14 18:48 | NUR ---
RN note Patient remains intubated and sedated, tolerating current vent settings. On Kobe at 0.8/mcg/kg/min, Diprivan 5mcg/kg/min, and IVF 85cc/hr. Tube feeding at 20cc/hr is tolerated with no gastric residual noted. IJ remains patent and intact with good blood return. Side rails up x3, HOB above 45 degree, call light with in reach. Will endorse to plaster mechanic for continuity of care.
--- NOTE | 2022-02-14 20:00 | NUR ---
ICU NOTES Received patient sedated on Diprivan gtt at 5 mcg.Remains intubated to mechanical vent with same vent settings.No acte respiratory distress noted.Secretions suctioned and oral care done. SR/SB 50's.Kobe Synephrine gtt infusing for BP support.Continue NGT feeding well tolerated no residual noted.NGT placement verified.FC to gravity.Turned and repositioned.
[2022-02-14] MEDS: INSULIN GLARGINE, 100 UNIT/ML CARTRIDGE SQ SCH (21:29)
[2022-02-14] MEDS: SENNOSIDES 8.6 MG TABLET PO SCH (21:36)
[2022-02-14] MEDS: ATORVASTATIN 10 MG TABLET PO SCH (21:36)
[2022-02-15] VITALS (50 sets, daily range): BP systolic 89–148; BP diastolic 37–91
[2022-02-15] MEDS: BLOOD SUGAR DIAGNOSTIC 1 EACH STRIP IN SCH ×7 (01:10→21:40)
[2022-02-15] MEDS: INSULIN REGULAR, HUMAN 100 UNIT/ML 3 ML VIAL SQ PRN ×4 (01:12→21:45)
[2022-02-15] MEDS: IV 1/2NS 1000 ML 1,000 ML IV PRN ×2 (01:28→12:50)
[2022-02-15] MEDS: PROPOFOL 10MG/ML 50ML 50 ML IV PRN (01:30)
[2022-02-15 05:04] LABS: EOSINOPHILS % (AUTO) 0.1 % (0.0-6.0); HEMATOCRIT 22 % (33-45); HEMOGLOBIN 7.3 g/dL (11.5-14.8); LYMPHOCYTES # (AUTO) 0.4 K/uL (0.8-4.8); LYMPHOCYTES % (AUTO) 2.7 % (20.0-44.0); MEAN CORPUSCULAR HGB CONC 33 g/dl (31.0-36.0); MEAN CORPUSCULAR VOLUME 89 fL (82-100); MONOCYTES # (AUTO) 0.4 K/uL (0.1-1.30); MONOCYTES % (AUTO) 2.4 % (2.0-12.0); NEUTROPHILS # (AUTO) 15.2 K/uL (1.8-8.9); NEUTROPHILS % (AUTO) 94.8 % (43.0-81.0); PLATELET COUNT (AUTO) 81 K/uL (150-450); RED BLOOD CELL COUNT(AUTO) 2.51 MIL/uL (4.0-5.2)
[2022-02-15] MEDS: HYDROCORTISONE SOD SUCCINATE 100 MG/2 ML VIAL IV SCH (05:16)
[2022-02-15 05:29] LABS: CARBON DIOXIDE 23 mmol/L (21-32); CHLORIDE 107 mmol/L (98-107); CREATININE 1.8 mg/dL (0.6-1.3); GLUCOSE 130 mg/dL (74-106); MAGNESIUM 1.9 mg/dL (1.8-2.4); PHOSPHORUS 2.8 mg/dL (2.5-4.9); POTASSIUM 3.4 mmol/L (3.5-5.1); SODIUM SERUM 137 mmol/L (136-145); UREA NITROGEN, BLOOD 49 mg/dL (7-18)
--- NOTE | 2022-02-15 07:00 | NUR ---
END NOTE Patient resting in no acute distress.Remain sedated and intubated SB/SR 50's -80's.Kobe Synephrine gtt 0.4 mcg,Diprivan gtt at 5 mcg.Tolerating tube feeding.With 2 loose stools kept clean and dry.Turned and repositioned Q 2 hrs off loading pressure points.Finger stick blood sugar normalizing.All due medications administered.Report given to day Nurse.
--- NOTE | 2022-02-15 07:10 | NUR ---
Rn note Patient on bed with on current vent settings AC 22, Vt 450 , P5, Fio2 39% tolerating well o2 saturation 100% ET tube 7.5 at 23 ilya. On tele monitor with NSR HR 81. Right triple IJ in place with Kobe @ 0.4/mcg/kg/min running and Diprivan 5/mcg/kg/min and IVF 85ml/hr. Right femoral HD cath in place and right 22 gauge on wrist. NGT in place and patent on Glucerna 1.2 @ 40 ml/hr and tolerating well. Peripheral pulse present and strong. on bilateral wrist restraints for safety. Patient waiting to be dialyzed.
[2022-02-15] MEDS ORDERED: POTASSIUM CHLORIDE 20 MEQ POWDER PACKET NG SCH (07:30)
[2022-02-15 08:12] LABS: LYMPHOCYTES % (MANUAL) 1 % (16-48); MONOCYTES % (MANUAL) 3 % (0-11.0); NEUTROPHILS % (MANUAL) 96 (42-76)
[2022-02-15] MEDS: MULTIVITAMINS,THERAGRAN 1 UDTAB TABLET PO SCH (08:15)
[2022-02-15] MEDS: ASCORBIC ACID 500 MG TABLET PO SCH ×2 (08:15→17:17)
[2022-02-15] MEDS: ZINC SULFATE 220 MG CAPSULE PO SCH ×2 (08:15→17:17)
[2022-02-15] MEDS: PANTOPRAZOLE 40 MG TABLET.DR PO SCH (08:16)
[2022-02-15] MEDS: MEMANTINE HCL 5 MG TABLET PO SCH ×2 (08:16→17:17)
[2022-02-15] MEDS: ASPIRIN 81 MG TAB.CHEW PO SCH (08:16)
[2022-02-15] MEDS: NYSTATIN TOP POWDER 15 GM BOTTLE TP SCH (08:21)
[2022-02-15] MEDS: DAKINS QUARTER STRENGTH (0.125%) 480 ML BOTTLE TOP SCH (08:21)
[2022-02-15] MEDS: DOCUSATE SODIUM 100 MG CAPSULE PO SCH (08:25)
--- NOTE | 2022-02-15 10:00 | NUR ---
RN Note Patient finished hemodialysis, 1 Liter removed. Blood pressure maintained with in normal limits.
--- NOTE | 2022-02-15 10:27 | NUR ---
et-tube pulled back to 20cm. rn aware
[2022-02-15] MEDS: MEROPENEM 500 MG in IV NS 0.9% 50 ML IV SCH ×2 (10:59→23:20)
--- NOTE | 2022-02-15 11:00 | NUR ---
RN Note Per Dr. Chris. Patient on sedation vacation.
[2022-02-15 12:13] LABS: ABG BASE EXCESS -0.7 mmol/L; ABG OXYGEN SATURATION 98.6 % (92.0-98.5); ABG PCO2 20.9 mmHg (35.0-45.0); ABG PH 7.597 (7.350-7.450); ABG PO2 139.6 mmHg (75.0-100.0); AaDO2 121.6 mmHg; COHb 0.3 % (0.5-1.5); MetHb 0.2 % (0.0-1.5); O2Hb 98.1 % (94.0-97.0); PEEP,BG 5 cm H2O; SITE, ABG Right Radial; VT, ABG 450 mL
--- NOTE | 2022-02-15 13:00 | NUR ---
RN Note Femoral HD cath dressing changed. large bowel movement noted. patient was cleaned. Patient continues off from Diprivan and is calm and cooperative tolerating ventilator. IAN @ 0.2mcg/kg/min, will titrate to 0.1mcg/kg/min.
[2022-02-15] MEDS: GLUCERNA 1.2 1,000 ML BOTTLE NG PRN (15:31)
--- NOTE | 2022-02-15 16:00 | NUR ---
RN Note DR Chris notified of ABG results and new vent settings were ordered and carried out. Patient is on AC 16, Peep 5, VT 400, Fio2 40%.
--- NOTE | 2022-02-15 18:39 | NUR ---
END NOTE Patient tolerated new vent settings AC 16, VT 400, Peep 5, Fi02 40%. had 1 episode of large soft bowel movement. HD cath dressing changed, HOB above 45 degree with side rails up x3 for safety. IVF running @ 85cc/hr, Diprivan 0ff and Kobe off. ET 7.5 @ 20cm at lip line. Family members visited today. At this moment patient continues hemodynamically stable. Will endorse to upcoming nurse for continuity if care. Call light with in reach. Addendum: 02/15/22 at 1900 by CHU ROBERTS RN END NOTE Patient tolerated new vent settings AC 16, VT 400, Peep 5, Fi02 40%. had 1 episode of large soft bowel movement. HD cath dressing changed, HOB above 45 degree with side rails up x3 for safety. IVF running @ 85cc/hr, Diprivan 0ff and Kobe off. ET 7.5 @ 20cm at lip line. Family members visited today. At this moment patient continues hemodynamically stable. Patient opens eyes spontaneously and withdraws to pain. Patient appears calm at moment. Will endorse to upcoming nurse for continuity if care. Call light with in reach.
--- NOTE | 2022-02-15 19:10 | NUR ---
RN OPENING NOTES RECEIVED PATIENT ON BED, NO AGITATION NOTED, CALM, AROUSABLE, ON MECHANICAL VENTILATOR, SETTINGS TOLERATED WELL, RESPIRATORY EVEN AND UNLABORED, NO SOB NOTED, NOT IN ACUTE DISTRESS. REMAIN AFEBRILE. NOTED WITH RIJ IV LINE, PATENT, INTACT. FLUSHED WITH NS, NO S/S OF INFILTRATION NOTED AT SITE. RUNNING WITH 0.45 NS @ 85 ML/HR. WITH RIGHT FEMORAL HD CATH, NO BLEEDING NOTED AT SITE. WITH NG TUBE INSERTED AT LEFT NARES, PATENT INTACT, VERIFIED PLACEMENT BY AUSCULTATION, NO RESIDUAL NOTED UPON ASPIRATION, RUNNING WITH GLUCERNA 1.2 @ 40 ML/HR, HEAD OF BED KEPT ELEVATED. ON LAWSON CATHETER PATENT, INTACT DRAINING WITH CLEAR YELLOW URINE VIA GRAVITY. WITH BILATERAL SOFT WRIST RESTRAIN. ALL SAFETY MEASURE PROVIDED. BED IN LOWEST POSITION, LOCKED. BED ALARM ARMED. CALL LIGHT WITH IN REACH. CONTINUE TO MONITOR.
[2022-02-15] MEDS: INSULIN GLARGINE, 100 UNIT/ML CARTRIDGE SQ SCH (21:45)
[2022-02-15] MEDS: SENNOSIDES 8.6 MG TABLET PO SCH (21:45)
[2022-02-16] VITALS (40 sets, daily range): BP systolic 95–162; BP diastolic 34–59
[2022-02-16] MEDS: IV 1/2NS 1000 ML 1,000 ML IV PRN ×3 (01:08→23:14)
[2022-02-16] MEDS: BLOOD SUGAR DIAGNOSTIC 1 EACH STRIP IN SCH ×6 (01:10→21:20)
[2022-02-16] MEDS: INSULIN REGULAR, HUMAN 100 UNIT/ML 3 ML VIAL SQ PRN ×4 (01:11→21:22)
--- NOTE | 2022-02-16 01:12 | NUR ---
RN NOTES BLOOD SUGAR 123 mg/dL. NO INSULIN COVERAGE PER SLIDING SCALE
[2022-02-16 05:38] LABS: EOSINOPHILS % (AUTO) 0.5 % (0.0-6.0); HEMATOCRIT 22 % (33-45); HEMOGLOBIN 7.3 g/dL (11.5-14.8); LYMPHOCYTES # (AUTO) 0.8 K/uL (0.8-4.8); LYMPHOCYTES % (AUTO) 5.3 % (20.0-44.0); MEAN CORPUSCULAR HGB CONC 34 g/dl (31.0-36.0); MEAN CORPUSCULAR VOLUME 89 fL (82-100); MONOCYTES # (AUTO) 0.4 K/uL (0.1-1.30); MONOCYTES % (AUTO) 2.5 % (2.0-12.0); NEUTROPHILS # (AUTO) 13.4 K/uL (1.8-8.9); NEUTROPHILS % (AUTO) 91.7 % (43.0-81.0); PLATELET COUNT (AUTO) 73 K/uL (150-450); RED BLOOD CELL COUNT(AUTO) 2.44 MIL/uL (4.0-5.2); WHITE BLOOD COUNT (AUTO) 14.6 K/uL (4.3-11.0)
[2022-02-16 05:47] LABS: CALCIUM, SERUM 7.6 mg/dL (8.5-10.1); CARBON DIOXIDE 24 mmol/L (21-32); CHLORIDE 102 mmol/L (98-107); CREATININE 1.4 mg/dL (0.6-1.3); GLUCOSE 90 mg/dL (74-106); MAGNESIUM 1.6 mg/dL (1.8-2.4); PHOSPHORUS 2.5 mg/dL (2.5-4.9); POTASSIUM 3.9 mmol/L (3.5-5.1); SODIUM SERUM 133 mmol/L (136-145); UREA NITROGEN, BLOOD 35 mg/dL (7-18)
--- NOTE | 2022-02-16 07:00 | NUR ---
open note Patient on bed with on current vent settings AC 16, Vt 400 , P5, Fio2 30% tolerating well o2 saturation 100% ET tube 7.5 at 20 ilya. On tele monitor with NSR HR 81. Right triple IJ in place with no drips or sedation running, IVF 85ml/hr. Right femoral HD cath in place and right 22 gauge on wrist. NGT in place and patent on Glucerna 1.2 @ 45 ml/hr and tolerating well. Peripheral pulse present and strong. on bilateral wrist restraints for safety.
--- NOTE | 2022-02-16 07:04 | NUR ---
RN NOTES PATIENT REMAIN STABLE, CALMED, NO EPISODE OF AGITATION. RESPIRATORY EVEN AND UNLABORED, NO SOB NOTED, NOT IN ACUTE DISTRESS. REMAIN AFEBRILE. RUNNING WITH 0.45 NS @ 85 ML/HR. WITH RIGHT FEMORAL HD CATH, NO BLEEDING NOTED AT SITE. WITH NG TUBE INSERTED AT LEFT NARES, PATENT INTACT, RUNNING WITH GLUCERNA 1.2 @ 40 ML/HR, HEAD OF BED KEPT ELEVATED. ON LAWSON CATHETER PATENT, INTACT DRAINING WITH CLEAR YELLOW URINE VIA GRAVITY. WITH BILATERAL SOFT WRIST RESTRAIN. ALL DUE MEDS GIVEN ORDERED. ALL SAFETY MEASURE PROVIDED. BED IN LOWEST POSITION, LOCKED. BED ALARM ARMED. CALL LIGHT WITH IN REACH. CONTINUE TO MONITOR.
[2022-02-16] MEDS: ASCORBIC ACID 500 MG TABLET PO SCH ×2 (08:20→17:38)
[2022-02-16] MEDS: ASPIRIN 81 MG TAB.CHEW PO SCH (08:20)
[2022-02-16] MEDS: MULTIVITAMINS,THERAGRAN 1 UDTAB TABLET PO SCH (08:20)
[2022-02-16] MEDS: PANTOPRAZOLE 40 MG TABLET.DR PO SCH (08:20)
[2022-02-16] MEDS: ZINC SULFATE 220 MG CAPSULE PO SCH ×2 (08:20→17:38)
[2022-02-16] MEDS: MEMANTINE HCL 5 MG TABLET PO SCH ×2 (08:23→17:38)
[2022-02-16] MEDS: DOCUSATE SODIUM 100 MG CAPSULE PO SCH (08:24)
[2022-02-16] MEDS: DAKINS QUARTER STRENGTH (0.125%) 480 ML BOTTLE TOP SCH (10:09)
[2022-02-16] MEDS: NYSTATIN TOP POWDER 15 GM BOTTLE TP SCH (10:09)
[2022-02-16] MEDS: MEROPENEM 500 MG in IV NS 0.9% 50 ML IV SCH ×2 (10:31→23:11)
--- NOTE | 2022-02-16 11:43 | NUR ---
RN NOTE Per Diana WATCHGUARD IAN to be infused to maintain MAP >75. new order carried out.
[2022-02-16] MEDS: PHENYLEPHRINE 100 MG in IV NS 0.9% 240 ML IV PRN (11:47)
--- NOTE | 2022-02-16 13:19 | NUR ---
RN NOTE Glucerna 1.2 @ 40ml/hr increased to 45ml/hr. goal rate = 45ml/hr
[2022-02-16] MEDS ORDERED: MAGNESIUM OXIDE 400 MG TABLET NG ONE (13:30)
--- NOTE | 2022-02-16 16:00 | NUR ---
RN NOTE Daughter came to visit, was hoping to speak to Dr. Chris regarding plan of care.
[2022-02-16] MEDS: GLUCERNA 1.2 1,000 ML BOTTLE NG PRN (17:39)
--- NOTE | 2022-02-16 18:40 | NUR ---
END NOTE Patient tolerated vent settings AC 16, VT 400, Peep 5, Fi02 30%. had 1 episode of large soft bowel movement. , HOB above 45 degree with side rails up x3 for safety. IVF running @ 85cc/hr, Diprivan 0ff and Kobe @ 0.3mcg/kg/min. ET 7.5 @ 20cm at lip line. Family members visited today. At this moment patient continues hemodynamically stable. Glucerna 1.2 @ 45cc/hr. Patient opens eyes spontaneously and withdraws to pain. Patient appears calm at moment. Will endorse to upcoming nurse for continuity if care. Call light with in reach. Addendum: 02/16/22 at 1927 by CHU ROBERTS RN END NOTE Patient tolerated vent settings AC 16, VT 400, Peep 5, Fi02 30%. had 1 episode of large soft bowel movement. , HOB above 45 degree with side rails up x3 for safety. IVF running @ 85cc/hr, Diprivan 0ff and Kobe @ 0.2mcg/kg/min. ET 7.5 @ 20cm at lip line. Family members visited today. At this moment patient continues hemodynamically stable. Glucerna 1.2 @ 45cc/hr. Patient opens eyes spontaneously and withdraws to pain. Patient appears calm at moment. Will endorse to upcoming nurse for continuity if care. Call light with in reach.
--- NOTE | 2022-02-16 20:00 | NUR ---
ICU NOTES Received patient open eyes spontaneously.No acute distress noted.Orally intubated to mechanical vent on AC mode.Vent settings well tolerated.SR/ST 90'S-103.Kobe Synephrine infusing for Renal Perfusion and to keep MAP>75.Kobe and IVF infusing via RIJ TLC site intact.NGT feeding well tolerated.No residual noted.NGT placement verified.Maintained HOB elevated at 45 degrees.FC to gravity.Turned and repositioned to comfort off loading pressure points.Continue monitoring.
[2022-02-16] MEDS: INSULIN GLARGINE, 100 UNIT/ML CARTRIDGE SQ SCH (21:21)
[2022-02-16 21:47] LABS: LYMPHOCYTES % (MANUAL) 4 % (16-48); MONOCYTES % (MANUAL) 1 % (0-11.0); NEUTROPHILS % (MANUAL) 95 (42-76)
[2022-02-16] MEDS: SENNOSIDES 8.6 MG TABLET PO SCH (22:00)
[2022-02-17] VITALS (102 sets, daily range): BP systolic 95–166; BP diastolic 41–66
[2022-02-17] MEDS: BLOOD SUGAR DIAGNOSTIC 1 EACH STRIP IN SCH ×6 (00:40→21:16)
[2022-02-17] MEDS: INSULIN REGULAR, HUMAN 100 UNIT/ML 3 ML VIAL SQ PRN ×3 (00:41→21:20)
[2022-02-17 04:46] LABS: EOSINOPHILS % (AUTO) 0.4 % (0.0-6.0); HEMATOCRIT 22 % (33-45); HEMOGLOBIN 7.4 g/dL (11.5-14.8); LYMPHOCYTES # (AUTO) 0.5 K/uL (0.8-4.8); MEAN CORPUSCULAR HGB CONC 33 g/dl (31.0-36.0); MEAN CORPUSCULAR VOLUME 90 fL (82-100); MONOCYTES # (AUTO) 0.3 K/uL (0.1-1.30); MONOCYTES % (AUTO) 2.4 % (2.0-12.0); NEUTROPHILS # (AUTO) 10.9 K/uL (1.8-8.9); NEUTROPHILS % (AUTO) 93.2 % (43.0-81.0); PLATELET COUNT (AUTO) 77 K/uL (150-450); RED BLOOD CELL COUNT(AUTO) 2.47 MIL/uL (4.0-5.2); WHITE BLOOD COUNT (AUTO) 11.7 K/uL (4.3-11.0)
[2022-02-17 05:04] LABS: CALCIUM, SERUM 7.3 mg/dL (8.5-10.1); CREATININE 1.2 mg/dL (0.6-1.3); MAGNESIUM 1.4 mg/dL (1.8-2.4); PHOSPHORUS 3.5 mg/dL (2.5-4.9); POTASSIUM 3.6 mmol/L (3.5-5.1)
--- NOTE | 2022-02-17 07:00 | NUR ---
END NOTE Patient resting more awake not following commands.No acute distress noted.VSS.SR. Kobe synephrine gtt titrated down.Tolerating vent settings.Tolerating nutrition.BM X1 still loose.Good urine output.AM care done.Wound care done.Accu check done q 4hrs coverage given per S/S.Turned and repositioned q 2hrs.Report given to day shift RN for JAZZMINE.
--- NOTE | 2022-02-17 07:00 | NUR ---
RN NOTES received pt on bed, intubated , on vent , with on current settings AC 16, Vt 400 , P5, Fio2 30% tolerating well o2 saturation 99%, ET tube 7.5 at 20 ilya. On tele monitor with NSR HR in 90's ,.laila at .02 mcg/kg/ min running for bp support , Right triple IJ and Right femoral HD cath in place and right 22 gauge on wrist, sites clean, dry and intact, NGT in place and patent on Glucerna 1.2 @ 45 ml/hr and tolerating well. placement verified, Peripheral pulse present and strong. on bilateral wrist restraints for safety. sr up X3, call light within easy reach, bed locked and in lowest position, continue to monitor.
[2022-02-17] MEDS: ZINC SULFATE 220 MG CAPSULE PO SCH ×2 (08:32→17:18)
[2022-02-17] MEDS: MEMANTINE HCL 5 MG TABLET PO SCH ×2 (08:32→17:18)
[2022-02-17] MEDS: ASCORBIC ACID 500 MG TABLET PO SCH ×2 (08:32→17:18)
[2022-02-17] MEDS: PANTOPRAZOLE 40 MG TABLET.DR PO SCH (08:32)
[2022-02-17] MEDS: MULTIVITAMINS,THERAGRAN 1 UDTAB TABLET PO SCH (08:32)
[2022-02-17] MEDS: ASPIRIN 81 MG TAB.CHEW PO SCH (08:32)
[2022-02-17] MEDS: DAKINS QUARTER STRENGTH (0.125%) 480 ML BOTTLE TOP SCH (08:33)
[2022-02-17] MEDS: NYSTATIN TOP POWDER 15 GM BOTTLE TP SCH (08:33)
[2022-02-17] MEDS: DOCUSATE SODIUM 100 MG CAPSULE PO SCH (08:33)
[2022-02-17] MEDS: IV 1/2NS 1000 ML 1,000 ML IV PRN ×2 (10:09→23:13)
[2022-02-17] MEDS: Magnesium 1GM/D5W 100ML PREMIX 100 ML IV SCH ×4 (10:09→13:16)
[2022-02-17] MEDS: MEROPENEM 500 MG in IV NS 0.9% 50 ML IV SCH ×2 (11:13→23:12)
--- NOTE | 2022-02-17 12:00 | NUR ---
RN NOTES FAMILY AT THE BEDSIDE REQUESTING TO TALK TO PCP, DR DOAN NOTIFED
--- NOTE | 2022-02-17 14:00 | NUR ---
RN NOTES ET TUBE SUCTIONING DONE , MODERATE AMOUNT OF THICK WHITISH SECRETION NOTED .
[2022-02-17] MEDS: GLUCERNA 1.2 1,000 ML BOTTLE NG PRN (16:38)
[2022-02-17] MEDS: PHENYLEPHRINE 100 MG in IV NS 0.9% 240 ML IV PRN (17:34)
--- NOTE | 2022-02-17 18:00 | NUR ---
RN NOTES PT REMAINS INTUBATED, , OFF SEDATION, RESPONDS TO PAINFUL STIMULI, OPENS EYES AT TIMES, DOES NOT FOLLOW COMMAND, ON IAN AT .02 MCG/KG/MIN TO KEEP MAP >75 PER MD ORDER , TF AT 45CC/HR RUNNING , NO RESIDUAL NOTED, SR UP x3, CALL LIGHT WITHIN EASY REACH, BED LOCKED AND IN LOWEST POSITION, WILL ENDORSE TO SUPERVISOR LOOPING NURSE FOR CONTINTIY OF CARE .
--- NOTE | 2022-02-17 19:15 | NUR ---
RN NOTE PT RECEIVED IN BED. PT CURRENTLY INTUBATED WITH CURRENT SETTINGS AT AC: 16, TV: 400, Fio2: 30% AND PEEP OF 5. TOLERATING SETTINGS WELL WITH OXYGEN SATURATION >98%. PT IS NOT ALERT/ORIENTED, ABLE TO OPEN EYES TO TOUCH. ON TELE MONITOR SHOWING NSR. NGT NOTED RUNNING GLUCERNA 1.2 AT 45 CC/HR, TOLERATING WELL. IV ACCESS NOTED ON RIGHT IJ TRIPLE LUMEN. IAN INFUSING AT 0.02 MCG/KG/MIN. VSS. RIGHT FEMORAL HD CATH NOTED WELL. SOFT WRIST BILATERAL RESTRAINTS NOTED FOR PT SAFETY. ALL SAFETY MEASURES/PROTOCOLS INITIATED. HOB ELEVATED. BED LOCKED AND IN LOWEST POSITION. SIDE RAILS UP. WILL CONTINUE TO MONITOR AND ASSESS FOR ANY CHANGES DURING SHIFT.
[2022-02-17] MEDS ORDERED: VANCOMYCIN 1 GM in IV D5W 250 ML IV SCH (20:00)
[2022-02-17] MEDS: SENNOSIDES 8.6 MG TABLET PO SCH (21:09)
[2022-02-17] MEDS: INSULIN GLARGINE, 100 UNIT/ML CARTRIDGE SQ SCH (21:21)
[2022-02-18] VITALS (83 sets, daily range): BP systolic 81–160; BP diastolic 33–74
[2022-02-18] MEDS: BLOOD SUGAR DIAGNOSTIC 1 EACH STRIP IN SCH ×6 (00:25→21:05)
[2022-02-18] MEDS: INSULIN REGULAR, HUMAN 100 UNIT/ML 3 ML VIAL SQ PRN ×3 (00:26→09:06)
[2022-02-18] MEDS: ACETAMINOPHEN 325 MG TABLET PO PRN (03:48)
--- NOTE | 2022-02-18 03:54 | NUR ---
RN NOTE PT NOTED WITH TEMPERATURE OF 100.6. TYLENOL ADMINISTERED VIA NGT. WILL RE-ASSESS.
[2022-02-18 04:30] LABS: CALCIUM, SERUM 7.2 mg/dL (8.5-10.1); CARBON DIOXIDE 26 mmol/L (21-32); CHLORIDE 97 mmol/L (98-107); CREATININE 0.8 mg/dL (0.6-1.3); GLUCOSE 87 mg/dL (74-106); POTASSIUM 3.6 mmol/L (3.5-5.1); SODIUM SERUM 129 mmol/L (136-145); UREA NITROGEN, BLOOD 19 mg/dL (7-18)
--- NOTE | 2022-02-18 04:52 | NUR ---
RN NOTE BS 59. WILL ADMINISTER D50 AND RE-ASSESS. Addendum: 02/18/22 at 0619 by SAÚL SKINNER RN WRONG TIME*
[2022-02-18 05:02] LABS: EOSINOPHILS % (AUTO) 0.5 % (0.0-6.0); HEMATOCRIT 21 % (33-45); HEMOGLOBIN 7.1 g/dL (11.5-14.8); LYMPHOCYTES # (AUTO) 0.3 K/uL (0.8-4.8); LYMPHOCYTES % (AUTO) 2.5 % (20.0-44.0); MEAN CORPUSCULAR HGB CONC 34 g/dl (31.0-36.0); MEAN CORPUSCULAR VOLUME 89 fL (82-100); MONOCYTES # (AUTO) 0.2 K/uL (0.1-1.30); MONOCYTES % (AUTO) 1.4 % (2.0-12.0); NEUTROPHILS % (AUTO) 95.6 % (43.0-81.0); RED BLOOD CELL COUNT(AUTO) 2.37 MIL/uL (4.0-5.2); WHITE BLOOD COUNT (AUTO) 12.5 K/uL (4.3-11.0)
[2022-02-18 05:03] LABS: PLATELET COUNT (AUTO) 89 K/uL (150-450)
--- NOTE | 2022-02-18 05:10 | NUR ---
RN NOTE PT TEMPERATURE NOW 98.6. WILL CONTINUE TO MONITOR FOR ANY CHANGES.
--- NOTE | 2022-02-18 05:42 | NUR ---
RN NOTE BS 59. WILL ADMINISTER D50 AND RE-ASSESS.
[2022-02-18] MEDS: DEXTROSE 50%-WATER 50 ML DISP.SYRIN IV PRN (05:52)
--- NOTE | 2022-02-18 06:24 | NUR ---
RN NOTE BS NOW 201
--- NOTE | 2022-02-18 06:29 | NUR ---
RN NOTE NO SIGNIFICANT CHANGES IN PT CONDITION DURING SHIFT. PT TOLERATING CURRENT SETTINGS WELL WITH OXYGEN SATURATION >98%. NGT NOTED RUNNING GLUCERNA 1.2 AT 45 CC/HR, TOLERATING WELL. IV ACCESS NOTED ON RIGHT IJ TRIPLE LUMEN. IAN NOT INFUSING AT THE MOMENT D/T TO BP WNL OF MAP BEING >70-75 AND SBP >90. SOFT WRIST BILATERAL RESTRAINTS NOTED FOR PT SAFETY. ALL SAFETY MEASURES/PROTOCOLS INITIATED. ALL DUE MEDS GIVEN ORDERED. PT KEPT CLEAN AND COMFORTABLE. HOB ELEVATED. BED LOCKED AND IN LOWEST POSITION. SIDE RAILS UP. WILL ENDORSE TO MORNING SHIFT RN FOR JAZZMINE.
--- NOTE | 2022-02-18 07:05 | NUR ---
RN NOTES received pt on bed, intubated , on vent , with on current settings AC 16, TV 400 , P5, Fio2 30% tolerating well o2 saturation WNL, ET tube 7.5 at 20 ilya. On tele monitor with NSR HR in 70's , Right triple IJ and Right femoral HD cath in place and right 22 gauge on wrist, sites clean, dry and intact, NGT in place and patent on Glucerna 1.2 @ 45 ml/hr and tolerating well. placement verified, Peripheral pulse present and strong. on bilateral wrist restraints for safety. sr up X3, call light within easy reach, bed locked and in lowest position, continue to monitor.
[2022-02-18] MEDS: VANCOMYCIN 500 MG in IV D5W 100ml IV SCH ×2 (08:26→20:13)
[2022-02-18] MEDS: MEMANTINE HCL 5 MG TABLET PO SCH ×2 (08:27→16:15)
[2022-02-18] MEDS: PANTOPRAZOLE 40 MG TABLET.DR PO SCH (08:27)
[2022-02-18] MEDS: MULTIVITAMINS,THERAGRAN 1 UDTAB TABLET PO SCH (08:27)
[2022-02-18] MEDS: ASCORBIC ACID 500 MG TABLET PO SCH ×2 (08:27→16:15)
[2022-02-18] MEDS: ASPIRIN 81 MG TAB.CHEW PO SCH (08:27)
[2022-02-18] MEDS: ZINC SULFATE 220 MG CAPSULE PO SCH ×2 (08:27→16:15)
[2022-02-18] MEDS: DOCUSATE SODIUM 100 MG CAPSULE PO SCH (08:28)
[2022-02-18] MEDS: NYSTATIN TOP POWDER 15 GM BOTTLE TP SCH (08:29)
[2022-02-18] MEDS: DAKINS QUARTER STRENGTH (0.125%) 480 ML BOTTLE TOP SCH (08:29)
[2022-02-18 09:25] LABS: ABG BASE EXCESS 6.1 mmol/L; ABG PCO2 34.1 mmHg (35.0-45.0); ABG PH 7.547 (7.350-7.450); ABG PO2 105.3 mmHg (75.0-100.0); AaDO2 68.5 mmHg; COHb 0.6 % (0.5-1.5); MetHb 0.1 % (0.0-1.5); O2Hb 97.3 % (94.0-97.0); SITE, ABG Right Radial
[2022-02-18] MEDS: MEROPENEM 500 MG in IV NS 0.9% 50 ML IV SCH ×2 (11:32→22:40)
[2022-02-18] MEDS: IV 1/2NS 1000 ML 1,000 ML IV PRN (11:41)
--- NOTE | 2022-02-18 12:00 | NUR ---
RN NOTES PT TOLERATING SIMV MODE , O2 SAT WNL, ORAL AND ET SUCTIONING DONE, NO TUBE FEEDING RESIDUAL NOTED, CONTINUE TO MONITOR.
[2022-02-18] MEDS: GLUCERNA 1.2 1,000 ML BOTTLE NG PRN (14:55)
[2022-02-18] MEDS: PHENYLEPHRINE 100 MG in IV NS 0.9% 240 ML IV PRN (14:55)
--- NOTE | 2022-02-18 18:00 | NUR ---
RN NOTES PT REMAINS INTUBATED, ON SIMV MODE, O2 SAT WNL, PT OPENS EYES AT TIMES , DOES NOT FOLLOW COMMAND, TOLERAING TF , NO RESIDUAL NOTED, IVF AT 85CC/HR RUNNING , SR UP x3, CALL LIGHT WITHIN EASY REACH , BED LOCKED AND IN LOWEST POSITION, WILL ENDORSE TO PLANT ATTENDANT NURSE FOR CONTINUITY OF CARE .
--- NOTE | 2022-02-18 19:44 | NUR ---
FINANCIAL PROCESSING CLERK. INITIAL ASSESSMENT.RECEIVED THE PT REST IN BED, ORALLY INTUBATED. ETT 7.5,LIP 20CMS,RATE 4,PS 10. FIO2 30%. PEEP 5. SAT 98%. NO ACUTE DISTRESS NOTED. PT TOLERATED SIMV MODE.LT NARE INTACT. GLUCERNA 45ML/H. FC PATENT. HERMINIA SOFT WRIST RESTRAINT CHECKED AND RELEASED. NO INJURY OR REDNESS NOTED. WILL CONTINUE TO MONITOR.
[2022-02-18] MEDS ORDERED: VANCOMYCIN 0.75 GM in IV D5W 250 ML IV SCH (20:00)
--- NOTE | 2022-02-18 20:46 | NUR ---
RT Notes Pt received orally intubated w/ 7.5 ETT secured at 20cm at the lip line on [facility] vent on ordered settings SIMV mode, RR 4, VT 400, PS 10, FIO2 30%, PEEP +5. No resp distress noted at this time. Airway patent and secured. PHYSICIAN PRACTICE COORDINATOR done. Pt suctioned. Alarms set and audible. Vent plugged into red outlet. Ambubag at bedside. Will cont to monitor. Addendum: 02/18/22 at 2046 by RAS HADDAD RT Amended: Links added.
[2022-02-18] MEDS: INSULIN GLARGINE, 100 UNIT/ML CARTRIDGE SQ SCH (21:07)
[2022-02-18] MEDS: SENNOSIDES 8.6 MG TABLET PO SCH (21:58)
--- NOTE | 2022-02-18 21:59 | NUR ---
MEAT SELECTOR Sandrine not given. pt has loose stool
[2022-02-19] VITALS (57 sets, daily range): BP systolic 80–154; BP diastolic 32–102
[2022-02-19] MEDS: BLOOD SUGAR DIAGNOSTIC 1 EACH STRIP IN SCH ×6 (00:57→21:12)
[2022-02-19] MEDS: IV 1/2NS 1000 ML 1,000 ML IV PRN ×2 (01:05→13:08)
--- NOTE | 2022-02-19 03:27 | NUR ---
FAMILY PRACTICE NURSE PRACTITIONER AM CARE GIVEN. REMAINING SAME VENT SETTINGS TOLERATED WELL. SAT 98%, NO ACUTE DISTRESS NOTED, AERIAL SPRAYER SHOWING S TACH.FC PATENT. URINE DRAINING, HERMINIA SOFT WRIST RESTRAINT CHECKED AND RELEASED. NO INJURY OR REDNESS NOTED, NGT FEEDING TOLERATED WELL. TURN AND REPOSITION Q2H. WILL CONTINUE TO MONITOR VITALS.
[2022-02-19] MEDS: ACETAMINOPHEN 325 MG TABLET PO PRN (03:50)
[2022-02-19 04:45] LABS: BASOPHILS % (AUTO) 0.1 % (0.0-2.0); EOSINOPHILS % (AUTO) 0.4 % (0.0-6.0); LYMPHOCYTES # (AUTO) 0.4 K/uL (0.8-4.8); LYMPHOCYTES % (AUTO) 3.4 % (20.0-44.0); MEAN CORPUSCULAR HGB CONC 33 g/dl (31.0-36.0); MEAN CORPUSCULAR VOLUME 90 fL (82-100); MONOCYTES # (AUTO) 0.1 K/uL (0.1-1.30); MONOCYTES % (AUTO) 1.3 % (2.0-12.0); NEUTROPHILS # (AUTO) 10.6 K/uL (1.8-8.9); NEUTROPHILS % (AUTO) 94.8 % (43.0-81.0); PLATELET COUNT (AUTO) 112 K/uL (150-450); RED BLOOD CELL COUNT(AUTO) 2.17 MIL/uL (4.0-5.2); WHITE BLOOD COUNT (AUTO) 11.2 K/uL (4.3-11.0)
[2022-02-19 04:58] LABS: HEMATOCRIT 20 % (33-45); HEMOGLOBIN 6.4 g/dL (11.5-14.8)
[2022-02-19 05:09] LABS: BAND % (MANUAL) 4 % (0.0-5.0); LYMPHOCYTES % (MANUAL) 4 % (16-48)
[2022-02-19 05:10] LABS: CALCIUM, SERUM 7.2 mg/dL (8.5-10.1); CARBON DIOXIDE 25 mmol/L (21-32); CHLORIDE 98 mmol/L (98-107); CREATININE 0.9 mg/dL (0.6-1.3); EOSINOPHILS % (MANUAL) 1 % (0-4); GLUCOSE 125 mg/dL (74-106); MAGNESIUM 1.5 mg/dL (1.8-2.4); MONOCYTES % (MANUAL) 2 % (0-11.0); PHOSPHORUS 2.5 mg/dL (2.5-4.9); POTASSIUM 3.8 mmol/L (3.5-5.1); SODIUM SERUM 130 mmol/L (136-145); UREA NITROGEN, BLOOD 22 mg/dL (7-18)
[2022-02-19 05:31] LABS: ALANINE AMINOTRANSFERASE 43 U/L (12-78); ALKALINE PHOSPHATASE 132 U/L (46-116); ASPARTATE AMINOTRANSFERASE 37 U/L (15-37); BILIRUBIN,TOTAL 0.2 mg/dL (0.2-1.0); TOTAL PROTEIN, SERUM 4.7 g/dL (6.4-8.2)
[2022-02-19 05:45] LABS: ALBUMIN 0.9 g/dL (3.4-5.0)
--- NOTE | 2022-02-19 06:00 | NUR ---
LIGHT EQUIPMENT OPERATOR. TEMPERATURE IS 100.1. TYLENOL GIVEN PER ORDERED.
--- NOTE | 2022-02-19 06:07 | NUR ---
CRITICAL LAB VALUE H&H AND ALBUMIN NOTIFIED ASSEMBLER MOTOR VEHICLE MILL LABOR SUPERVISOR RICH.ORDER RECEIVED
--- NOTE | 2022-02-19 07:30 | NUR ---
RN OPENING NOTE PT RECEIVED IN BED ON MECHANICAL VENT WITH ALL PRESCRIBED SETTINGS TOLERATING WELL WITH NO SIGNS OF LABORED BREATHING OR DISTRESS SAT 99%. PT IS A/OX1 TELEMONITORED SR 80S. PT HAS NG TUBE INFUSING WITH GLUCERNA 1.2 @45ML/HR; FC IN PLACE DRAINING URINE TO GRAVITY; IV ACCESS R IJ INFUSING WITH 1/2 NS @85L/HR AND R FEM HD CATH. PT WILL BE RECEIVING 1UNITE PRBC TODAY. BED IS LOCKED IN LOWEST POSITION X2 BED RAILS UP AND ALL HOSPITAL PROTOCOLS ARE IN PLACE. WILL CONTINUE TO MONITOR THIS SHIFT.
[2022-02-19] MEDS: VANCOMYCIN 500 MG in IV D5W 100ml IV SCH ×3 (08:00→21:11)
[2022-02-19] MEDS: PANTOPRAZOLE 40 MG TABLET.DR PO SCH (08:00)
[2022-02-19] MEDS: ASPIRIN 81 MG TAB.CHEW PO SCH (08:19)
[2022-02-19] MEDS: ZINC SULFATE 220 MG CAPSULE PO SCH ×2 (08:19→17:36)
[2022-02-19] MEDS: ASCORBIC ACID 500 MG TABLET PO SCH ×2 (08:19→17:36)
[2022-02-19] MEDS: MULTIVITAMINS,THERAGRAN 1 UDTAB TABLET PO SCH (08:19)
[2022-02-19] MEDS: MEMANTINE HCL 5 MG TABLET PO SCH ×2 (08:19→17:36)
[2022-02-19] MEDS: NYSTATIN TOP POWDER 15 GM BOTTLE TP SCH (08:20)
[2022-02-19] MEDS: DOCUSATE SODIUM 100 MG CAPSULE PO SCH (08:20)
[2022-02-19] MEDS: DAKINS QUARTER STRENGTH (0.125%) 480 ML BOTTLE TOP SCH (08:21)
[2022-02-19] MEDS: INSULIN REGULAR, HUMAN 100 UNIT/ML 3 ML VIAL SQ PRN ×3 (08:24→17:39)
[2022-02-19 09:15] LABS: ABG BASE EXCESS 0.6 mmol/L; ABG OXYGEN SATURATION 97.9 % (92.0-98.5); ABG PCO2 27.2 mmHg (35.0-45.0); ABG PH 7.546 (7.350-7.450); ABG PO2 103.3 mmHg (75.0-100.0); AaDO2 78.6 mmHg; COHb 0.8 % (0.5-1.5); MetHb 0.3 % (0.0-1.5); O2Hb 96.8 % (94.0-97.0); SITE, ABG Left Radial; VENT MODE, BG CPAP +5 PS 10 30%
[2022-02-19] MEDS: Magnesium 1GM/D5W 100ML PREMIX 100 ML IV SCH ×2 (10:19→11:20)
[2022-02-19] MEDS: MEROPENEM 500 MG in IV NS 0.9% 50 ML IV SCH ×2 (12:28→23:30)
--- NOTE | 2022-02-19 15:00 | NUR ---
RN NOTE: PRBC PT FINISHED 1 UNIT PRBC 350ML TRANSFUSION WITHOUT COMPLICATION. WILL CONTINUE TO MONITOR.
[2022-02-19] MEDS: GLUCERNA 1.2 1,000 ML BOTTLE NG PRN (17:49)
--- NOTE | 2022-02-19 18:44 | NUR ---
RN CLOSING NOTE PT IN BED ON MECHANICAL VENT WITH ALL PRESCRIBED SETTINGS TOLERATING WELL WITH NO SIGNS OF LABORED BREATHING OR DISTRESS SAT 100%. PT IS A/OX1 TELEMONITORED SR 80S. PT HAS NG TUBE INFUSING WITH GLUCERNA 1.2 @45ML/HR; FC IN PLACE DRAINING URINE TO GRAVITY -1400ML; IV ACCESS R IJ INFUSING WITH 1/2 NS @85L/HR AND R FEM HD CATH. PT RECEIVED 1UNIT PRBC TODAY TOLERATED WELL WITHOUT COMPLICATION. BED IS LOCKED IN LOWEST POSITION X2 BED RAILS UP AND ALL HOSPITAL PROTOCOLS ARE IN PLACE. WILL ENDORSE TO STOCK SORTER NURSE FOR JAZZMINE.
--- NOTE | 2022-02-19 18:50 | NUR ---
RN NOTE: CONSENT OBTAINED THIS NURSE CALLED REENA CUMMINGS (SON) VIA TELEPHONE AND OBTAINED CONSENT FOR SERIAL DEBRIDEMENT OF SACRUM. TWO RN CONSENT WAS OBTAINED VIA TELEPHONE WITH NILDA LUEVANO. SIGNED CONSENT HAS BEEN PLACED IN CHART.
[2022-02-19] MEDS: IV NS 0.9% 1,000 ML IV PRN (19:37)
--- NOTE | 2022-02-19 20:44 | NUR ---
STILL OPERATOR BRANDY, INITIAL ASSESSMENT. RECEIVED THE PT REST IN BED. ORALLY INTUBATED. ETT 7.5,LIP 20, RATE 4, [id number] SAME VENT SETTINGS TOLERATED WELL. SAT 98%, NO ACUTE DISTRESS NOTED. DECK STEWARD SHOWING NSR. IV RT IJ TLC. IVF NS 75 ML/H. HERMINIA SOFT WRIST RESTRAINT CHECKED AND RELEASED. NO INJURY OR REDNESS NOTED. DECK STEWARD SHOWING NSR. FC PATENT. URINE DRAINING. HOB ELEVATED. WILL CONTINUE TO MONITOR VITALS.
[2022-02-19] MEDS: INSULIN GLARGINE, 100 UNIT/ML CARTRIDGE SQ SCH (21:15)
[2022-02-19] MEDS: SENNOSIDES 8.6 MG TABLET PO SCH (22:00)
[2022-02-20] VITALS (53 sets, daily range): BP systolic 103–175; BP diastolic 35–72
[2022-02-20] MEDS: BLOOD SUGAR DIAGNOSTIC 1 EACH STRIP IN SCH ×6 (02:17→21:24)
[2022-02-20] MEDS: INSULIN REGULAR, HUMAN 100 UNIT/ML 3 ML VIAL SQ PRN ×3 (02:22→21:27)
[2022-02-20 05:20] LABS: BASOPHILS % (AUTO) 0.1 % (0.0-2.0); EOSINOPHILS % (AUTO) 0.7 % (0.0-6.0); HEMATOCRIT 24 % (33-45); HEMOGLOBIN 8.2 g/dL (11.5-14.8); LYMPHOCYTES # (AUTO) 0.4 K/uL (0.8-4.8); LYMPHOCYTES % (AUTO) 4.1 % (20.0-44.0); MEAN CORPUSCULAR HGB CONC 34 g/dl (31.0-36.0); MEAN CORPUSCULAR VOLUME 90 fL (82-100); MONOCYTES # (AUTO) 0.2 K/uL (0.1-1.30); NEUTROPHILS # (AUTO) 8.4 K/uL (1.8-8.9); NEUTROPHILS % (AUTO) 93.1 % (43.0-81.0); PLATELET COUNT (AUTO) 139 K/uL (150-450); RED BLOOD CELL COUNT(AUTO) 2.69 MIL/uL (4.0-5.2)
[2022-02-20] MEDS: ACETAMINOPHEN 325 MG TABLET PO PRN (05:21)
[2022-02-20 05:38] LABS: ALANINE AMINOTRANSFERASE 48 U/L (12-78); ALKALINE PHOSPHATASE 134 U/L (46-116); ASPARTATE AMINOTRANSFERASE 36 U/L (15-37); BILIRUBIN,TOTAL 0.2 mg/dL (0.2-1.0); TOTAL PROTEIN, SERUM 4.8 g/dL (6.4-8.2)
[2022-02-20 05:42] LABS: CALCIUM, SERUM 7.2 mg/dL (8.5-10.1); CARBON DIOXIDE 24 mmol/L (21-32); CHLORIDE 100 mmol/L (98-107); CREATININE 0.8 mg/dL (0.6-1.3); GLUCOSE 170 mg/dL (74-106); MAGNESIUM 1.7 mg/dL (1.8-2.4); PHOSPHORUS 2.8 mg/dL (2.5-4.9); POTASSIUM 3.8 mmol/L (3.5-5.1); SODIUM SERUM 132 mmol/L (136-145); UREA NITROGEN, BLOOD 22 mg/dL (7-18)
--- NOTE | 2022-02-20 08:00 | NUR ---
WEAVING LOOM OPERATOR Bedside report taken from [facility] nurse Madelin MUNGUIA. pt intubated on pressure support vent setting with fio2 30%, pt tolerating well. josef lung sounds diminished. pt open eyes but does not follow commands but w/d to painful stimuli in bue and ble. perrla. pt NSR on monitor, bue and ble pulses present. pt has ngt site clean and dry. pt on glucerna 1.2 @ 45 ml/hr tolerating well, residuals 0 ml. bowel sounds present. pt has kulkarni intact and draining clear yellow urine. pt has multiple wounds see chart for photos, dressings clean dry and intact. all lines traced. all drips verified. safety measures in place. will continue to monitor.
[2022-02-20] MEDS: ASPIRIN 81 MG TAB.CHEW PO SCH (08:28)
[2022-02-20] MEDS: PANTOPRAZOLE 40 MG TABLET.DR PO SCH (08:28)
[2022-02-20] MEDS: MULTIVITAMINS,THERAGRAN 1 UDTAB TABLET PO SCH (08:28)
[2022-02-20] MEDS: MEMANTINE HCL 5 MG TABLET PO SCH ×2 (08:28→16:12)
[2022-02-20] MEDS: ZINC SULFATE 220 MG CAPSULE PO SCH ×2 (08:28→16:12)
[2022-02-20] MEDS: DOCUSATE SODIUM 100 MG CAPSULE PO SCH (08:28)
[2022-02-20] MEDS: ASCORBIC ACID 500 MG TABLET PO SCH ×2 (08:28→16:12)
[2022-02-20] MEDS: DAKINS QUARTER STRENGTH (0.125%) 480 ML BOTTLE TOP SCH (08:29)
[2022-02-20] MEDS: NYSTATIN TOP POWDER 15 GM BOTTLE TP SCH (08:29)
[2022-02-20] MEDS: VANCOMYCIN 500 MG in IV D5W 100ml IV SCH ×2 (08:40→20:09)
[2022-02-20] MEDS: IV NS 0.9% 1,000 ML IV PRN ×2 (08:43→22:33)
--- NOTE | 2022-02-20 09:15 | NUR ---
AREA CLEANER Dr Chris at bedside assessing pt and updated on pt status. md talking to pt family member about pt condition and plan of care. pt on SIMV vent setting, tolerating well. per Dr Chris pt family want to discuss how aggressive they want to be in pts care, so at this time, keep pt as is on SIMV vent setting, we are not to extubate at this time until family makes decision on how they want to procede with pt care. no other orders at this time. Schuyler RT and charge nurse Tila MUNGUIA aware
[2022-02-20] MEDS: MEROPENEM 500 MG in IV NS 0.9% 50 ML IV SCH ×3 (11:20→23:51)
[2022-02-20] MEDS: Magnesium 1GM/D5W 100ML PREMIX 100 ML IV SCH ×2 (11:40→12:57)
--- NOTE | 2022-02-20 19:05 | NUR ---
RN OPENING NOTES RECEIVED PATIENT ON BED, ORALLY INTUBATED, ETT-7.5, LIP 20, ON MECHANICAL VENTILATOR, SETTINGS TOLERATED WELL, RESPIRATORY EVEN AND UNLABORED, NO SOB NOTED, NOT IN ACUTE DISTRESS. REMAIN AFEBRILE. NOTED WITH RIJ IV LINE, PATENT, INTACT. FLUSHED WITH NS, NO S/S OF INFILTRATION NOTED AT SITE. RUNNING WITH NS @ 75 ML/HR. WITH RIGHT FEMORAL HD CATH, NO BLEEDING NOTED AT SITE. WITH NG TUBE INSERTED AT LEFT NARES, PATENT INTACT, VERIFIED PLACEMENT BY AUSCULTATION, NO RESIDUAL NOTED UPON ASPIRATION, RUNNING WITH GLUCERNA 1.2 @ 45 ML/HR, HEAD OF BED KEPT ELEVATED. ON LAWSON CATHETER PATENT, INTACT DRAINING WITH CLEAR YELLOW URINE VIA GRAVITY. WITH BILATERAL SOFT WRIST RESTRAIN. ALL SAFETY MEASURE PROVIDED. BED IN LOWEST POSITION, LOCKED. BED ALARM ARMED. CALL LIGHT WITH IN REACH. CONTINUE TO MONITOR.
--- NOTE | 2022-02-20 19:19 | NUR ---
PRIVATE ADVISOR Bedside report given to [facility] nurse Ayush MUNGUIA. pt intubated, no sedation, easily arousable. all lines traced. all drips verified. safety measures in place. pt clean and dry. no signs of acute distress at this time. plan of care endorsed to [facility] nurse to keep pt on SBT as tolerated if in respiratory distress ok to place back on AC vent setting, plan to keep pt as is and on sbt as tolerated until thursday when all family at bedside for terminal extubation and code status change to DNR/ DNI Dr Chris.
[2022-02-20] MEDS: INSULIN GLARGINE, 100 UNIT/ML CARTRIDGE SQ SCH (21:27)
[2022-02-20] MEDS: SENNOSIDES 8.6 MG TABLET PO SCH (21:28)
[2022-02-21] VITALS (24 sets, daily range): BP systolic 122–157; BP diastolic 47–85
[2022-02-21] MEDS: BLOOD SUGAR DIAGNOSTIC 1 EACH STRIP IN SCH ×6 (01:39→21:27)
[2022-02-21] MEDS: INSULIN REGULAR, HUMAN 100 UNIT/ML 3 ML VIAL SQ PRN ×3 (01:40→21:28)
--- NOTE | 2022-02-21 01:40 | NUR ---
RN NOTES BLOOD SUGAR 93 mg/dL, NO INSULIN COVERAGE PER SLIDING SCALE
[2022-02-21 04:29] LABS: BASOPHILS % (AUTO) 0.2 % (0.0-2.0); EOSINOPHILS % (AUTO) 0.4 % (0.0-6.0); HEMATOCRIT 25 % (33-45); HEMOGLOBIN 8.5 g/dL (11.5-14.8); LYMPHOCYTES # (AUTO) 0.4 K/uL (0.8-4.8); LYMPHOCYTES % (AUTO) 4.6 % (20.0-44.0); MEAN CORPUSCULAR HGB CONC 34 g/dl (31.0-36.0); MEAN CORPUSCULAR VOLUME 90 fL (82-100); MONOCYTES # (AUTO) 0.3 K/uL (0.1-1.30); MONOCYTES % (AUTO) 2.7 % (2.0-12.0); NEUTROPHILS # (AUTO) 8.8 K/uL (1.8-8.9); NEUTROPHILS % (AUTO) 92.1 % (43.0-81.0); PLATELET COUNT (AUTO) 192 K/uL (150-450); RED BLOOD CELL COUNT(AUTO) 2.79 MIL/uL (4.0-5.2); WHITE BLOOD COUNT (AUTO) 9.5 K/uL (4.3-11.0)
[2022-02-21 04:50] LABS: ALANINE AMINOTRANSFERASE 51 U/L (12-78); ALKALINE PHOSPHATASE 128 U/L (46-116); ASPARTATE AMINOTRANSFERASE 36 U/L (15-37); BILIRUBIN,TOTAL 0.2 mg/dL (0.2-1.0); CALCIUM, SERUM 7.3 mg/dL (8.5-10.1); CARBON DIOXIDE 27 mmol/L (21-32); CHLORIDE 106 mmol/L (98-107); CREATININE 0.7 mg/dL (0.6-1.3); MAGNESIUM 1.8 mg/dL (1.8-2.4); PHOSPHORUS 2.5 mg/dL (2.5-4.9); POTASSIUM 3.6 mmol/L (3.5-5.1); SODIUM SERUM 138 mmol/L (136-145); TOTAL PROTEIN, SERUM 4.9 g/dL (6.4-8.2); UREA NITROGEN, BLOOD 20 mg/dL (7-18)
[2022-02-21 05:08] LABS: GLUCOSE 49 mg/dL (74-106)
[2022-02-21] MEDS: DEXTROSE 50%-WATER 50 ML DISP.SYRIN IV PRN (05:08)
--- NOTE | 2022-02-21 05:08 | NUR ---
RN NOTES PATIENT NOTED WITH BLOOD SUGAR 48 mg/dL, D50 GIVEN PER MD'S ORDER. CONTINUE TO MONITOR.
--- NOTE | 2022-02-21 05:38 | NUR ---
RN NOTES BLOOD SUGAR RECHECKED, OBTAINED 97 mg/dL, PATIENT IS SLEEPING BUT EASILY AROUSES. CONTINUE TO MONITOR.
--- NOTE | 2022-02-21 07:18 | NUR ---
RN NOTES PATIENT REMAIN STABLE THROUGH OUT THE SHIFT, ORALLY INTUBATED, ETT-7.5, LIP 20, ON MECHANICAL VENTILATOR, SETTINGS TOLERATED WELL, RESPIRATORY EVEN AND UNLABORED, NO SOB NOTED, NOT IN ACUTE DISTRESS. REMAIN AFEBRILE. RUNNING WITH NS @ 75 ML/HR. WITH NG TUBE INSERTED AT LEFT NARES, PATENT INTACT, RUNNING WITH GLUCERNA 1.2 @ 45 ML/HR, HEAD OF BED KEPT ELEVATED. ON LAWSON CATHETER PATENT, INTACT DRAINING WITH CLEAR YELLOW URINE VIA GRAVITY. WITH BILATERAL SOFT WRIST RESTRAIN. ALL SAFETY MEASURE PROVIDED. BED IN LOWEST POSITION, LOCKED. BED ALARM ARMED. CALL LIGHT WITH IN REACH. REPORT GIVEN TO MORNING SHIFT NURSE.
--- NOTE | 2022-02-21 07:30 | NUR ---
OPENING NOTE: REPORT RECEIVED FROM VANDANA MUNGUIA. ORDERS AND LABS REVIEWED DURING REPORT. PT IS INTUBATED ON CPAP SETTING ON VENT. NO SEDATION. PT OPENS EYES, DOES NOT FOLLOW COMMANDS. PER REPORT PLAN IS TO EXTUBATE PATIENT TOMORROW AFTER FAMILY GETS HERE THEN MAKE PATIENT A DNR. PT CHECKED ON HOURLY AND PRN BY NURSING STAFF.
[2022-02-21] MEDS ORDERED: hydrALAZINE HCL 25 MG TABLET GT PRN (07:58)
[2022-02-21] MEDS ORDERED: MAG HYDROX/AL HYDROX/SIMETH 30 ML UDC GT PRN (07:59)
[2022-02-21] MEDS ORDERED: PHARMACY TO CHANGE PO MEDS TO GT/NG XX PRN (08:00)
[2022-02-21] MEDS ORDERED: MAGNESIUM HYDROXIDE 30 ML UDC GT PRN (08:02)
[2022-02-21] MEDS ORDERED: ACETAMINOPHEN ES 500 MG TABLET GT PRN (08:02)
[2022-02-21] MEDS: VANCOMYCIN 500 MG in IV D5W 100ml IV SCH (09:17)
[2022-02-21] MEDS: ZINC SULFATE 220 MG CAPSULE GT SCH ×2 (09:50→17:41)
[2022-02-21] MEDS: DOCUSATE SODIUM LIQ 100 MG/10 ML UDC GT SCH (09:50)
[2022-02-21] MEDS: MULTIVITAMINS,THERAGRAN 1 UDTAB TABLET GT SCH (09:51)
[2022-02-21] MEDS: PANTOPRAZOLE 40 MG/PACK PACK NG SCH (09:51)
[2022-02-21] MEDS: ASPIRIN 81 MG TAB.CHEW GT SCH (09:51)
[2022-02-21] MEDS: MEMANTINE HCL 5 MG TABLET GT SCH ×2 (09:51→17:41)
[2022-02-21] MEDS: ASCORBIC ACID 500 MG TABLET GT SCH ×2 (09:51→17:41)
[2022-02-21] MEDS: DAKINS QUARTER STRENGTH (0.125%) 480 ML BOTTLE TOP SCH (09:52)
[2022-02-21] MEDS: NYSTATIN TOP POWDER 15 GM BOTTLE TP SCH (09:52)
[2022-02-21] MEDS: IV NS 0.9% 1,000 ML IV PRN (12:14)
[2022-02-21] MEDS: MEROPENEM 500 MG in IV NS 0.9% 50 ML IV SCH ×2 (12:15→23:25)
[2022-02-21] MEDS: IV NS 0.9% 250 ML IV PRN (12:46)
--- NOTE | 2022-02-21 18:28 | NUR ---
END OF SHIFT NOTE: PT HAD A FAIRLY UNEVENTFUL SHIFT. NO BM TODAY. 1025 ML UOP THIS SHIFT. FAMILY VISITED PT TODAY, APPEARS SUPPORTIVE. PER PATIENTS SON IT IS CONFIRMED THAT TOMORROW MORNING WHEN FAMILY COMES THAT PT WILL BE EXTUBATED AND MADE A DNR, POSSIBLY COMFORT MEASURES. PT CHECKED ON HOURLY AND PRN BY NURSING STAFF.
--- NOTE | 2022-02-21 19:05 | NUR ---
RN OPENING NOTES RECEIVED PATIENT ON BED, ORALLY INTUBATED, ETT-7.5, LIP 20, ON MECHANICAL VENTILATOR, CPAP MODALITY FIO2- 30%, PEEP-5, PS- 10. RESPIRATORY EVEN AND UNLABORED, NO SOB NOTED, NOT IN ACUTE DISTRESS. REMAIN AFEBRILE. NOTED WITH RIJ IV LINE, PATENT, INTACT. FLUSHED WITH NS, NO S/S OF INFILTRATION NOTED AT SITE. RUNNING WITH NS @ 75 ML/HR. WITH RIGHT FEMORAL HD CATH, NO BLEEDING NOTED AT SITE. WITH NG TUBE INSERTED AT LEFT NARES, PATENT INTACT, VERIFIED PLACEMENT BY AUSCULTATION, NO RESIDUAL NOTED UPON ASPIRATION, RUNNING WITH GLUCERNA 1.2 @ 45 ML/HR, HEAD OF BED KEPT ELEVATED. ON LAWSON CATHETER PATENT, INTACT DRAINING WITH CLEAR YELLOW URINE VIA GRAVITY. WITH BILATERAL SOFT WRIST RESTRAIN. ALL SAFETY MEASURE PROVIDED. BED IN LOWEST POSITION, LOCKED. BED ALARM ARMED. CALL LIGHT WITH IN REACH. CONTINUE TO MONITOR.
--- NOTE | 2022-02-21 19:38 | NUR ---
RN NOTES RECEIVED CALL JOSE LUISCirilo [id number]) LATEST VANCO TROUGH 23, HOLD DOSE FOR 1999.
[2022-02-21] MEDS: INSULIN GLARGINE, 100 UNIT/ML CARTRIDGE SQ SCH (21:28)
--- NOTE | 2022-02-21 21:29 | NUR ---
RN NOTES BLOOD SUGAR 98 mg/dL, NO INSULIN COVERAGE PER SLIDING SCALE. HELD LANTUS 30 UNITS. NO S/S OF HYPOGLYCEMIA NOTED, NO CHANGE IN LOC. CONTINUE TO MONITOR.
[2022-02-21] MEDS ORDERED: SENNOSIDES 8.6 MG TABLET GT SCH (22:00)
[2022-02-21] MEDS: GLUCERNA 1.2 1,000 ML BOTTLE NG PRN (23:41)
[2022-02-22] VITALS (31 sets, daily range): BP systolic 121–167; BP diastolic 52–86
[2022-02-22] MEDS: IV NS 0.9% 1,000 ML IV PRN (00:42)
[2022-02-22] MEDS: BLOOD SUGAR DIAGNOSTIC 1 EACH STRIP IN SCH ×3 (01:09→09:44)
[2022-02-22] MEDS: INSULIN REGULAR, HUMAN 100 UNIT/ML 3 ML VIAL SQ PRN ×3 (01:10→09:51)
--- NOTE | 2022-02-22 01:10 | NUR ---
RN NOTES BLOOD SUGAR 130 mg/dL, NO INSULIN COVERAGE PER SLIDING SCALE
[2022-02-22 05:32] LABS: BASOPHILS % (AUTO) 0.5 % (0.0-2.0); EOSINOPHILS % (AUTO) 0.6 % (0.0-6.0); HEMATOCRIT 24 % (33-45); HEMOGLOBIN 7.9 g/dL (11.5-14.8); LYMPHOCYTES # (AUTO) 0.6 K/uL (0.8-4.8); LYMPHOCYTES % (AUTO) 8.2 % (20.0-44.0); MEAN CORPUSCULAR HGB CONC 33 g/dl (31.0-36.0); MEAN CORPUSCULAR VOLUME 90 fL (82-100); MONOCYTES # (AUTO) 0.3 K/uL (0.1-1.30); MONOCYTES % (AUTO) 3.7 % (2.0-12.0); NEUTROPHILS # (AUTO) 6.7 K/uL (1.8-8.9); PLATELET COUNT (AUTO) 216 K/uL (150-450); RED BLOOD CELL COUNT(AUTO) 2.64 MIL/uL (4.0-5.2); WHITE BLOOD COUNT (AUTO) 7.7 K/uL (4.3-11.0)
[2022-02-22 06:00] LABS: ALANINE AMINOTRANSFERASE 47 U/L (12-78); ALKALINE PHOSPHATASE 151 U/L (46-116); ASPARTATE AMINOTRANSFERASE 33 U/L (15-37); BILIRUBIN,TOTAL 0.3 mg/dL (0.2-1.0); CALCIUM, SERUM 7.1 mg/dL (8.5-10.1); CARBON DIOXIDE 27 mmol/L (21-32); CHLORIDE 105 mmol/L (98-107); CREATININE 0.7 mg/dL (0.6-1.3); GLUCOSE 155 mg/dL (74-106); MAGNESIUM 1.4 mg/dL (1.8-2.4); PHOSPHORUS 2.6 mg/dL (2.5-4.9); POTASSIUM 4.2 mmol/L (3.5-5.1); SODIUM SERUM 137 mmol/L (136-145); TOTAL PROTEIN, SERUM 4.8 g/dL (6.4-8.2); UREA NITROGEN, BLOOD 18 mg/dL (7-18)
[2022-02-22 06:20] LABS: ALBUMIN 0.9 g/dL (3.4-5.0)
--- NOTE | 2022-02-22 07:25 | NUR ---
RN NOTES PATIENT REMAIN STABLE THROUGH OUT THE SHIFT, ORALLY INTUBATED, ETT-7.5, LIP 20, ON MECHANICAL VENTILATOR, CPAP MODALITY FIO2- 30%, PEEP-5, PS- 10. RESPIRATORY EVEN AND UNLABORED, NO SOB NOTED, NOT IN ACUTE DISTRESS. REMAIN AFEBRILE. RUNNING WITH NS @ 75 ML/HR. WITH NG TUBE INSERTED AT LEFT NARES, PATENT INTACT, RUNNING WITH GLUCERNA 1.2 @ 45 ML/HR, HEAD OF BED KEPT ELEVATED. ON LAWSON CATHETER PATENT, INTACT DRAINING WITH CLEAR YELLOW URINE VIA GRAVITY. WITH BILATERAL SOFT WRIST RESTRAIN. ALL DUE MEDS GIVEN ORDERED. ALL SAFETY MEASURE PROVIDED. BED IN LOWEST POSITION, LOCKED. BED ALARM ARMED. CALL LIGHT WITH IN REACH. REPORT GIVEN TO MORNING SHIFT NURSE.
[2022-02-22] MEDS ORDERED: VANCOMYCIN 500 MG in IV D5W 100ml IV SCH (08:00)
[2022-02-22] MEDS: DOCUSATE SODIUM LIQ 100 MG/10 ML UDC GT SCH (08:23)
[2022-02-22] MEDS: ASPIRIN 81 MG TAB.CHEW GT SCH (08:23)
[2022-02-22] MEDS: ASCORBIC ACID 500 MG TABLET GT SCH (08:23)
[2022-02-22] MEDS: MULTIVITAMINS,THERAGRAN 1 UDTAB TABLET GT SCH (08:24)
[2022-02-22] MEDS: PANTOPRAZOLE 40 MG/PACK PACK NG SCH (08:24)
[2022-02-22] MEDS: ZINC SULFATE 220 MG CAPSULE GT SCH (08:24)
[2022-02-22] MEDS: MEMANTINE HCL 5 MG TABLET GT SCH (08:24)
[2022-02-22] MEDS: DAKINS QUARTER STRENGTH (0.125%) 480 ML BOTTLE TOP SCH (08:25)
[2022-02-22] MEDS: NYSTATIN TOP POWDER 15 GM BOTTLE TP SCH (08:26)
[2022-02-22] MEDS ORDERED: Magnesium 1GM/D5W 100ML PREMIX 100 ML IV SCH (09:00)
[2022-02-22] MEDS: IV NS 0.9% 250 ML IV PRN (09:42)
--- NOTE | 2022-02-22 10:35 | NUR ---
S/P EXTUBATION; CODE STATUS COMFORT MEASURES ONLY PER MD ORDERS.PT IN STABLE CONDITION AT THIS TIME. FAMILY AT BEDSIDE, WILL CONTINUE TO MONITOR PT.
--- NOTE | 2022-02-22 10:35 | NUR ---
pt extubated placed on 1lpm n/c
[2022-02-22] MEDS ORDERED: LORAZEPAM INJ 2 MG/ML VIAL IV PRN (11:00)
[2022-02-22] MEDS ORDERED: DC PROPOFOL WHEN EXTUBATED XX PRN (11:00)
--- NOTE | 2022-02-22 18:45 | NUR ---
BEDSIDE REPORT GIVEN TO [facility]., PT. WAS TRANSFERRED AT THIS TIME TO 329. PT. IN NO APPARENT DISTRESS NOTED.
--- NOTE | 2022-02-22 20:34 | NUR ---
MS RN OPENING NOTES; RECEIVED PATIENT SLEEP IN BED COMFORTABLY AROUSABLE TO VERBAL STIMULI, BED IN LOW POSITION, CALL LIGHTS WITHIN REACH, NO COMPLAIN OF PAIN AND DISCOMFORT AT THIS TIME, ON [id number] AT 2LPM SATURATING WELL, ON LAWSON CATHETER WITH 100CC URINE OUTPUT, PATIENT ON NPO STATUS POST EXTUBATED TRANSFER FROM [place], WITH IV LINE AT RT IJ AND RT WRIST #22 SL, WITH RT FEMORAL HD CATH, PATIENT KEPT CLEAN AND DRY ALL NEEDS MET WILL CONTINUE TO MONITOR.
[2022-02-23] VITALS (13 sets, daily range): BP systolic 121–153; BP diastolic 43–65
--- NOTE | 2022-02-23 06:36 | NUR ---
RN CLOSING NOTES: PATIENT SLEEP IN BED, BED IN LOW POSITION, CALL LIGHTS WITHIN REACH, NO COMPLAIN OF PAIN AND DISCOMFORT AT THIS TIME, ON O2 INHALATION AT 2LPM SATURATING WELL,PATIENT S/P EXTUBATION, FROM ICU, ON NPO, WITH IV LINE AT RT WRIST#22 SL AND RT IJ WITH RT FEMORAL CATHETER- PATIENT KEPT CLEAN AND DRY ALL NEEDS MET ENDORSE TO INCOMING SHIFT.
--- NOTE | 2022-02-23 08:06 | NUR ---
RN OPENING NOTE PATIENT RECEIVED IN BED, AO X 1. ABLE TO RESPONDS PHYSICAL STIMULI. IN NO ACUTE DISTRESS NOTED. RESPIRATORY EVEN AND UNLABORED ON OXYGEN AT 2Ls VIA NC. KEEP NPO STATUS. SKIN IS WARM TO TOUCH, KEEP CLEAN/DRY. LAWSON CATH CONNECTING URINE BAG. KEPT ELEVATED HOB FOR ENSURE AIRWAY AND ASPIRATION PRECAUTION, ALSO LOWEST POSITION OF THE BED, S/R UP X 3, BED ALARM IS ON AT ALL THE TIMES. ALL SAFETY PRECAUTION APPLIED. CALL LIGHT WITHIN REACH, WILL CONTINUE TO MONITOR.
[2022-02-23] MEDS: MORPHINE SULFATE INJ 2 MG/ML DISP.SYRIN IV PRN ×2 (12:01→17:41)
[2022-02-23] MEDS: IV D5/ 0.9% NACL 1,000 ML IV SCH (13:50)
--- NOTE | 2022-02-23 18:44 | NUR ---
RN CLOSE NOTE PATIENT IN BED, IN NO ACUTE DISTRESS OBSERVED. PATIENT IS ON COMFORT MEASURE. RESPIRATION EVEN AND UNLABORED ON OXYGEN AT 2Ls VIA NC. SKIN IS WARM TO TOUCH KEEP CLEAN/DRY. LAWSON CONNECTING URINE BAG. KEPT ELEVATED HOB FOR ENSURE AIRWAY AND ASPIRATION PRECAUTION. ALSO LOWEST POSITION OF THE BED FOR SAFETY. CALL LIGHT WITHIN REACH, WILL ENDORSE TO EDITOR NEWS.
--- NOTE | 2022-02-23 20:35 | NUR ---
MS RN OPENING NOTES; RECEIVED PATIENT SLEEP IN BED COMFORTABLY, AROUSABLE TO TACTILE STIMULI, OPENS EYES BED IN LOW POSITION CALL LIGHTS WITHIN REACH, NO COMPLAIN OF PAIN AND DISCOMFORT AT THIS TIME , NO FACIAL GRIMACING WAS OBSERVED, PATIENT WITH IV LINE AT RT IJ#22 WITH ONGOING IV OF D5 NS@70ML PER HOUR INFUSING WELL, PATIENT WITH RT FEMORAL HD CATH, ON NPO, S/O EXTUBATION ON COMFORT MEASURES ONLY, PATIENT KEPT CLEAN AND DRY ALL NEEDS MET WILL CONTINUE TO MONITOR.
[2022-02-24] MEDS: IV D5/ 0.9% NACL 1,000 ML IV SCH ×2 (04:26→18:26)
--- NOTE | 2022-02-24 07:27 | NUR ---
RN OPENING NOTES RECEIVED PATIENT IN BED ASLEEP, AROUSABLE TO VERBAL AND TACTILE STIMULI. NO SIGNS OF ACUTE RESPIRATORY DISTRESS NOTED. ON O2 INHALATION, SPO2 @98%. NO SOB NOTED, BREATHING EVEN AND UNLABORED. WITH IV ACCESS ON RIGHT IJ, TRIPLE LUMEN, INTACT AND PATENT WITH D5 1/2 NS @70 ML/HR RUNNING. ALSO NOTED WITH RIGHT FEMORAL HD CATH INTACT WITH DRESSING C/D/I. F/C INTACT DRAINING CLEAR YELLOW URINE. SAFETY MEASURE IN PLACE. BED IN LOWEST AND LOCKED POSITION, SIDE RAILS UP X2, CALL LIGHT PLACED WITHIN EASY REACH. WILL CONTINUE TO MONITOR PATIENT.
--- NOTE | 2022-02-24 07:31 | NUR ---
MS RN CLOSING NOTES: PATIENT SLEEP IN BED COMFORTABLY, AROUSABLE TO TACTILE STIMULI, OPEN EYES, PATIENT WAS COMFORT MEASURES ONLY, S/P EXTUBATION YESTERDAY, ON LAWSON CATHETER WITH 550CC URINE OUTPUT WITH R IJ #22 WITH ONGOING D5NS@70ML/HR INFUSING WELL, PATIENT WAS NPO FOR SWALLOW EVALUATION, WITH RIGHT FEMORAL HD CATHETER, NO HD SCHEDULE FOR NOW PATIENT DOES NOT NEED IT FOR NOW, TURN FROM SIDE TO SIDE FOR COMFORT , KEPT CLEAN AND DRY ALL NEEDS MET ENDORSE TO INCOMING SHIFT.
[2022-02-24 08:00] VITALS: BP 158/60
[2022-02-24] MEDS: MORPHINE SULFATE INJ 2 MG/ML DISP.SYRIN IV PRN (13:20)
[2022-02-24 16:00] VITALS: BP 158/60
--- NOTE | 2022-02-24 18:51 | NUR ---
RN CLOSING NOTES PATIENT IN BED ASLEEP, EASILY AROUSED. NO SIGNS OF ACUTE RESPIRATORY DISTRESS NOTED. ON O2 @ 1LPM VIA N/C, SPO2 @98%. NO SOB NOTED, BREATHING EVEN AND UNLABORED. IV ACCESS ON RIGHT IJ, TRIPLE LUMEN, INTACT AND PATENT WITH D5 1/2 NS @70 ML/HR RUNNING. ALSO NOTED WITH RIGHT FEMORAL HD CATH INTACT WITH DRESSING C/D/I. F/C INTACT DRAINING CLEAR YELLOW URINE. SAFETY MEASURE IN PLACE. BED IN LOWEST AND LOCKED POSITION, SIDE RAILS UP X2, CALL LIGHT PLACED WITHIN EASY REACH. WILL ENDORSE TO NEXT SHIFT FOR CONTINUITY OF CARE.
--- NOTE | 2022-02-24 19:48 | NUR ---
RN OPENING NOTE PATIENT AWAKE IN BED. A/OX1. NO S/S OF DISTRESS, BREATHING ON 1L NC DIFFICULTY ON ROOM AIR. RIJ #20 INTACT AND PATENT W/ D5NS 70ML/HR. SAFETY MEASURES IN PLACE: BED AT LOWEST POSITION, LOCKED, RAILS UP X3, CALL VOSS WITHIN REACH. WILL CONTINUE TO MONITOR PATIENT.
[2022-02-24 20:00] VITALS: BP 109/55
--- NOTE | 2022-02-25 07:45 | NUR ---
RN CLOSING NOTE PATIENT AWAKE IN BED. A/OX1. NO S/S OF DISTRESS, BREATHING W/O DIFFICULTY ON 1L NC. RIJ INTACT AND PATENT W/ D5-1/2NS 70ML/HR; R-FEM HD CATH. SAFETY MEASURES IN PLACE: BED LOCKED, AT LOWEST POSITION, RAILS UP X3, CALL VOSS WITHIN REACH. REPORT ENDORSED TO AND ACKNOWLEDGED BY SKYE DAY SHIFT RN, FOR JAZZMINE.
[2022-02-25 08:00] VITALS: BP 172/64
[2022-02-25] MEDS: IV D5/ 0.9% NACL 1,000 ML IV SCH (10:10)
[2022-02-25 16:00] VITALS: BP 158/60
--- NOTE | 2022-02-25 16:31 | NUR ---
RN NOTES ENDORSED PATIENT TO NILDA ARCHULETA QUARANTINE INSPECTOR AT [facility]. RN PROVIDED PERTINENT PATIENT INFO AND SO CONTACT NUMBER.
--- NOTE | 2022-02-25 18:35 | NUR ---
RN NOTES PT DISCHARGED TO [facility] VIA AMBULANCE. EMT PROVIDED DISCHARGE DOCUMENTS, INFORMED NILDA ARCHULETA FROM [facility] OF PT'S VS AND AGREED TO RECEIVE PT.
== END 2022-02-25 18:37 | DRG 853 ==
LOC: ER 16:46 → TELE 22:10 → ICU 02-13 09:00 → MED 02-22 18:54
PROVIDERS: ADMIT Student in an Organized Health Care Education/Training Program; ATTEND Nurse Practitioner Acute Care
PROC: 0QB10ZZ Excision of Sacrum, Open Approach (ICD-10-PCS; principal; 2022-02-11)
PROC: 5A1955Z Respiratory Ventilation, Greater than 96 Consecutive Hours (ICD-10-PCS; 2022-02-13)
PROC: 5A1D70Z Performance of Urinary Filtration, Intermittent, Less than 6 Hours Per Day (ICD-10-PCS; 2022-02-13)
PROC: 05HM33Z Insertion of Infusion Device into Right Internal Jugular Vein, Percutaneous Approach (ICD-10-PCS; 2022-02-13)
PROC: B543ZZA Ultrasonography of Right Jugular Veins, Guidance (ICD-10-PCS; 2022-02-13)
PROC: 06HY33Z Insertion of Infusion Device into Lower Vein, Percutaneous Approach (ICD-10-PCS; 2022-02-13)
PROC: 0BH17EZ Insertion of Endotracheal Airway into Trachea, Via Natural or Artificial Opening (ICD-10-PCS; 2022-02-13)
PROC: 30233N1 Transfusion of Nonautologous Red Blood Cells into Peripheral Vein, Percutaneous Approach (ICD-10-PCS; 2022-02-19)
DX: A41.9 Sepsis, unspecified organism (principal); N17.0 Acute kidney failure with tubular necrosis; J96.01 Acute respiratory failure with hypoxia; R65.21 Severe sepsis with septic shock; L89.154 Pressure ulcer of sacral region, stage 4; J18.9 Pneumonia, unspecified organism; G92.8 Other toxic encephalopathy; E87.0 Hyperosmolality and hypernatremia; E87.2 Acidosis; M86.9 Osteomyelitis, unspecified; Z16.12 Extended spectrum beta lactamase (ESBL) resistance; N39.0 Urinary tract infection, site not specified; I12.9 Hypertensive chronic kidney disease with stage 1 through stage 4 chronic kidney disease, or unspecified chronic kidney disease; N18.9 Chronic kidney disease, unspecified; Z20.822 Contact with and (suspected) exposure to COVID-19; E11.22 Type 2 diabetes mellitus with diabetic chronic kidney disease; F03.90 Unspecified dementia, unspecified severity, without behavioral disturbance, psychotic disturbance, mood disturbance, and anxiety; Z79.4 Long term (current) use of insulin; Z79.01 Long term (current) use of anticoagulants; Z79.82 Long term (current) use of aspirin; Z79.899 Other long term (current) drug therapy; E78.5 Hyperlipidemia, unspecified; G47.00 Insomnia, unspecified; L89.626 Pressure-induced deep tissue damage of left heel; D64.9 Anemia, unspecified; F09 Unspecified mental disorder due to known physiological condition; I48.91 Unspecified atrial fibrillation; L85.3 Xerosis cutis; M20.41 Other hammer toe(s) (acquired), right foot; M20.42 Other hammer toe(s) (acquired), left foot; M62.562 Muscle wasting and atrophy, not elsewhere classified, left lower leg; M62.561 Muscle wasting and atrophy, not elsewhere classified, right lower leg; B96.20 Unspecified Escherichia coli [E. coli] as the cause of diseases classified elsewhere; B95.5 Unspecified streptococcus as the cause of diseases classified elsewhere; E11.69 Type 2 diabetes mellitus with other specified complication; D69.6 Thrombocytopenia, unspecified; R13.10 Dysphagia, unspecified; Z51.5 Encounter for palliative care; N27.1 Small kidney, bilateral; Z66 Do not resuscitate; R62.7 Adult failure to thrive
CPT/HCPCS: 31720; 36415; 36600; 70450-TC; 71045-TC; 76770-TC; 80048-TC; 80053-TC; 80202-TC; 81001; 82010-TC; 82247-TC; 82248-TC; 82533; 82803-TC; 82947-TC; 82962-TC; 83605-TC; 83735-TC; 84100-TC; 84443-TC; 84484-TC; 85025-TC; 85730-TC; 86704; 86705; 86706; 86803; 86850-TC; 87040-TC; 87070-TC; 87081-TC; 87086-TC; 87186-TC; 87340; 90935-TC; 92526; 92611-TC; 93307-TC; 94002-TC; 94003-TC; 94760-TC; 94799-TC; 99082-TC; A6253; A6403; C1750; C9803; G0378; J0282; J1610; J1720; J1815; J2185; J2270; J2370; J2543; J3370; J3475; J3490; J7030; J7042; J7050; J7060; P9016